=== PATIENT | female | born 1955 | race Caucasian/White ===

== ENCOUNTER 2016-08-12 11:45 | Observation (INO) | payer MEDICARE, OTHER ==
[~2016-08-12] VITALS: Ht 165.1 cm; Wt 90.0 kg
[~2016-08-12 11:45] MED LIST: ADVAI250I PO; ALPR.25 PO; CIPR500T4 PO; ENBR25IN3 SC; EPIP0.3I IM; GABA100C4 PO; METH2.5 PO; METO50CR PO; ONDA1TAB16 PO; TRAM50 PO
[2016-08-12 11:48] VITALS: BP 126/72; PULSE 80; RESP 16; TEMP 98.2; O2SAT 98
[2016-08-12 12:47] VITALS: BP 111/59; PULSE 64; RESP 20; O2SAT 99
[2016-08-12] MEDS ORDERED: EPIN1INJ17 IM (13:07)
[2016-08-12] MEDS ORDERED: ADVA250A INH (13:07)
[2016-08-12] MEDS ORDERED: ALPR.25 PO (13:07)
[2016-08-12] MEDS ORDERED: METH2.5T PO (13:10)
[2016-08-12] MEDS ORDERED: amitriptyline (13:10)
[2016-08-12] MEDS ORDERED: GABA100C4 PO (13:10)
[2016-08-12] MEDS ORDERED: SODIUM CHLORIDE 0.9% FLUSH 10 ML FLUSH IVF PRN (13:15)
--- NOTE | 2016-08-12 13:23 | PD ---
HPI Chief Complaint: Neuro Symptoms/ Deficits Time Seen by Provider: 13:18 Travel History International Travel<30 days: No Contact w/Intl Traveler<30days: No Traveled to known affect area: No History of Present Illness HPI 60-year-old female presents to the emergency department for evaluation of left eye blurriness, unstable gait, swinging to the left side that started approximately 3 days ago. Patient states she has fallen 3 times in the past 3 days. She states she has been getting intermittent headaches. Patient has a history of rheumatoid arthritis, atrial fibrillation, hypertension, DVT, COPD, PE, pneumothorax. She states that she is not currently on anticoagulants. Patient states that she had none of these symptoms before 3 days ago. Patient states she has a morphine pump due to chronic back pain from her rheumatoid arthritis. She states she has been having worsening pain. Patient denies any fevers. No chest pain or shortness of breath. No abdominal pain. No nausea, vomiting, diarrhea. She states her physical therapist came today he was concerned of her symptoms. She does report intermittent slurred speech as well. PFSH Past Medical History Arthritis: Yes (R.A.) Atrial Fibrillation: Yes Autoimmune Disease: Yes (R.A.) Blood Disorders: No Anxiety: Yes Depression: No Heart Rhythm Problems: Yes Cancer: No Cardiac Catheterization: No Cardiovascular Problems: Yes High Cholesterol: No Chest Pain: Yes Congestive Heart Failure: No COPD: Yes Cerebrovascular Accident: No Diabetes: No Diminished Hearing: Yes (L EAR DEAF) Endocrine: No Gastrointestinal Disorders: Yes GERD: No Glaucoma: No Genitourinary: Yes Headaches: Yes Hepatitis: No Hiatal Hernia: No Hypertension: Yes Immune Disorder: No Implanted Vascular Access Dvce: No Kidney Stones: No Medical other: Yes (ARTHRITIS- PHLEBITIS LEFT ARM-OSTEOMYLITIS) Musculoskeletal: Yes (OSTEOMYLITIS, BILATERAL CARPAL TUNNEL SURGERY) Neurologic: Yes Psychiatric: No Reproductive: Yes Respiratory: Yes (PE) Migraines: No Pneumonia: Yes Radiation Therapy: No Seizures: No Sleep Apnea: No Thyroid Disease: No Ulcer: No Tetanus Vaccination: < 5 Years Influenza Vaccination: No PNEUMOCCOCAL Vaccine (Year): 2 ?: Not Menopausal: Yes : 2 Para: 2 Past Surgical History Abdominal Surgery: Yes AICD: No Appendectomy: Yes Arteriovenous Shunt: No Section: Yes (X 2) Cholecystectomy: Yes Coronary Artery Bypass Graft: No Ear Surgery: Yes (MASTOID TUMOR REMOVED) Endocrine Surgery: No Eye Surgery: No Genitourinary Surgery: Yes (BLADDER SLING) Gynecologic Surgery: Yes Hysterectomy: Yes Insulin Pump: No Joint Replacement: No Oral Surgery: Yes (UPPER TEETH REMOVED FOR DENTURES) Pacemaker: No Thoracic Surgery: No Other Surgery: Yes (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 Epinephrine Inj (Epinephrine) 0.3 Mg/0.3 Ml Pfpen 0.3 Mg IM ONCE PRN Xanax (Alprazolam) 0.25 Mg Tab 0.25 Mg PO Q8H PRN Review of Systems Except as stated in HPI: all other systems reviewed are Neg Physical Exam Narrative GENERAL: Well-nourished, well-developed female patient, afebrile. SKIN: Focused skin assessment warm/dry. HEAD: Normocephalic. Atraumatic. ENT: Mucosa pink and moist. No erythema or exudates. No uvular edema. No uvular , palatal, or tonsillar deviation. Airway patent. Nasal turbinates appear normal without nasal blood, purulent drainage or septal hematoma. Bilateral tympanic membranes are clear without erythema or perforation. EYES: No scleral icterus. No injection or drainage. PERRLA. EOM intact. NECK: Supple, trachea midline. No JVD or lymphadenopathy. CARDIOVASCULAR: Regular rate and rhythm without murmurs, gallops, or rubs. Bilateral radial and pedal pulses are 2+ RESPIRATORY: Breath sounds equal bilaterally. No accessory muscle use. Lungs sounds are clear to auscultation. GASTROINTESTINAL: Abdomen soft, non-tender, nondistended. MUSCULOSKELETAL: No cyanosis, or edema. Bilateral upper and lower extremity strength 5/5. All extremities are neurovascularly intact. BACK: Nontender without obvious deformity. No CVA tenderness. NEUROLOGICAL: Awake and alert. Cranial nerves II through XII intact. Motor and sensory grossly within normal limits. Five out of 5 muscle strength in all muscle groups. Normal speech. Patient has difficulty doing [id number] bilaterally due to revision on the left. She is unable to do heel to alvarez due to chronic pain. Data Data Last Documented VS Vital Signs Date Time Temp Pulse Resp B/P Pulse Ox O2 Delivery O2 Flow Rate FiO2 08/12/16 13:45 20 95 Room Air 08/12/16 12:47 64 111/59 08/12/16 11:48 98.2 Orders Electrocardiogram (08/12/16 13:14) Prothrombin Time / Inr (Pt) (08/12/16 13:14) Act Partial Throm Time (Ptt) (08/12/16 13:14) Complete Blood Count With Diff (08/12/16 13:14) Comprehensive Metabolic Panel (08/12/16 13:14) Creatine Kinase (Cpk) (08/12/16 13:14) Troponin I (08/12/16 13:14) Urinalysis - C+S If Indicated (08/12/16 13:14) Ct Brain W/O Iv Contrast(Rout) (08/12/16 13:14) Chest, Single Ap (08/12/16 13:14) Ecg Monitoring (08/12/16 13:14) Iv Access Insert/Monitor (08/12/16 13:14) Oximetry (08/12/16 13:14) Sodium Chloride 0.9% Flush (Ns Flush) (08/12/16 13:15) Vascular Access Team Consult/P PRN (08/12/16 15:19) Mri Brain W/O Contrast (08/12/16 ) Mra Brain W/O Contrast (Cow) (08/12/16 ) Us Carotid Arteries Comp Bilat (08/12/16 ) Vascular Poc Ultrasound (08/12/16 ) Aspirin Chew (Aspirin Chew) (08/12/16 15:45) Labs Laboratory Tests Test 08/12/16 13:40 White Blood Count 5.1 TH/MM3 Red Blood Count 4.17 MIL/MM3 Hemoglobin 13.4 GM/DL Hematocrit 38.3 % Mean Corpuscular Volume 91.8 FL Mean Corpuscular Hemoglobin 32.2 PG Mean Corpuscular Hemoglobin 35.1 % Concent Red Cell Distribution Width 14.7 % Platelet Count 117 TH/MM3 Mean Platelet Volume 8.8 FL Neutrophils (%) (Auto) 41.8 % Lymphocytes (%) (Auto) 46.2 % Monocytes (%) (Auto) 9.3 % Eosinophils (%) (Auto) 2.2 % Basophils (%) (Auto) 0.5 % Neutrophils # (Auto) 2.1 TH/MM3 Lymphocytes # (Auto) 2.4 TH/MM3 Monocytes # (Auto) 0.5 TH/MM3 Eosinophils # (Auto) 0.1 TH/MM3 Basophils # (Auto) 0.0 TH/MM3 CBC Comment DIFF FINAL Differential Comment Prothrombin Time 11.5 SEC Prothromb Time International 1.0 RATIO Ratio Activated Partial 28.9 SEC Thromboplast Time Sodium Level 142 MEQ/L Potassium Level 4.1 MEQ/L Chloride Level 104 MEQ/L Carbon Dioxide Level 31.6 MEQ/L Anion Gap 6 MEQ/L Blood Urea Nitrogen 10 MG/DL Creatinine 0.64 MG/DL Estimat Glomerular Filtration 94 ML/MIN Rate Random Glucose 94 MG/DL Calcium Level 9.0 MG/DL Total Bilirubin 0.6 MG/DL Aspartate Amino Transf 57 U/L (AST/SGOT) Alanine Aminotransferase 29 U/L (ALT/SGPT) Alkaline Phosphatase 95 U/L Total Creatine Kinase 88 U/L Troponin I 0.03 NG/ML Total Protein 8.0 GM/DL Albumin 3.6 GM/DL [facility] Medical Decision Making Medical Screen Exam Complete: Yes Emergency Medical Condition: Yes Medical Record Reviewed: Yes Interpretation(s) CT brain - CONCLUSION: No acute intracranial disease. Left mastoidectomy. Chest x-ray - CONCLUSION: No acute cardiopulmonary abnormality is identified. Differential Diagnosis CVA versus TIA versus intracranial hemorrhage versus electrolyte abnormality versus cardiac arrhythmia Narrative Course 60-year-old female presents to the emergency department for evaluation of left eye blurriness, unstable gait, constant falls over the past 3 days. EKG, CBC, CMP, CK, troponin, PTT, PTT/INR, UA, CT of the brain, chest x-ray are ordered and pending. EKG shows sinus rhythm, heart rate 61, inverted T waves in V3, V4, V5. EKG is unchanged and previous EKG. CBC shows low platelets of 117, no other abnormality. CMP shows no acute abnormality. CK is 88. Troponin is 0.03. Coags are unremarkable. CT of the brain shows no acute intracranial disease. Chest x-ray shows no acute cardiopulmonary abnormality. I spoke to Dr. Harley who would like the patient to be admitted and consult placed. MRI of the brain, MRA COW, US carotid arteries are ordered and pending. [facility] is paged for admission. Dr. Valdez accepted admission. Diagnosis Primary Impression: CVA (cerebral vascular accident) Qualified Code: I63.9 - Cerebrovascular accident (CVA), unspecified mechanism Admitting Information Admitting Physician Requests: Admit Maria Fernanda Aguilera August 12, 2016 13:23
[2016-08-12 13:45] VITALS: RESP 20; O2SAT 95
[2016-08-12 13:53] LABS: AUTOMATED NEUTROPHIL # 2.1 TH/MM3 (1.8-7.7); BASOPHIL % 0.5 % (0.0-2.0); EOSINOPHIL # 0.1 TH/MM3 (0-0.4); EOSINOPHIL % 2.2 % (0.0-4.0); HEMATOCRIT 38.3 % (35.0-46.0); HEMO FLAGS DIFF FINAL; LYMPH % 46.2 % (9.0-44.0); LYMPHOCYTE # 2.4 TH/MM3 (1.0-4.8); MEAN CELL VOLUME 91.8 FL (80.0-100.0); MEAN CORPUSCULAR HEMOGLOBIN 32.2 PG (27.0-34.0); MEAN CORPUSCULAR HGB CONC 35.1 % (32.0-36.0); MONO % 9.3 % (0.0-8.0); NEUT % 41.8 % (16.0-70.0); PLATELET COUNT 117 TH/MM3 (150-450); RED BLOOD COUNT 4.17 MIL/MM3 (4.00-5.30); RED CELL DISTRIBUTION WIDTH 14.7 % (11.6-17.2); WHITE BLOOD COUNT 5.1 TH/MM3 (4.0-11.0)
[2016-08-12 14:03] LABS: APTT (PATIENT) 28.9 SEC (24.3-30.1); PROTHROMBIN TIME - PATIENT 11.5 SEC (9.8-11.6)
[2016-08-12 14:08] LABS: ANION GAP 6 MEQ/L (5-15); AST (GOT) 57 U/L (15-37); BICARBONATE 31.6 MEQ/L (21.0-32.0); BLOOD UREA NITROGEN 10 MG/DL (7-18); CHLORIDE 104 MEQ/L (98-107); GLOMERULAR FILTRATION RATE 94 ML/MIN (>89); POTASSIUM 4.1 MEQ/L (3.5-5.1); SODIUM (NA) 142 MEQ/L (136-145)
--- NOTE | 2016-08-12 14:11 | RADRPT ---
EXAM DATE/TIME: 08/12/2016 13:36 [facility] COMPARISON: CT PULMONARY ANGIOGRAM, October 14, 2014, 22:47. CHEST SINGLE AP, October 14, 2014, 20:26. INDICATIONS : Confusion and weakness. MEDICAL HISTORY : Unobtainable. SURGICAL HISTORY : Unobtainable. ENCOUNTER: Initial ACUITY: 1 day PAIN SCORE: 0/10 LOCATION: Bilateral chest FINDINGS: Portable AP view of the chest demonstrates a normal-sized cardiac silhouette. There is atelectasis at the left lung base. The subtle ovoid opacity in the left upper lung zone is stable. Chest CT perform ed in the interval demonstrated no pulmonary nodule. No effusion, consolidation, or pneumothorax is s een. Bones and soft tissues demonstrate no acute finding. CONCLUSION: No acute cardiopulmonary abnormality is identified. Vince De La Vega MD on August 12, 2016 at 14:06 Board Certified Radiologist. This report was verified electronically.
--- NOTE | 2016-08-12 14:11 | RADRPT ---
EXAM DATE/TIME: 08/12/2016 14:01 [facility] COMPARISON: No previous studies available for comparison. INDICATIONS : Patient has left eye bluriness along with slurred speech. RADIATION DOSE: 56.35 CTDIvol (mGy) MEDICAL HISTORY : Cardiovascular disease. Hypertension. SURGICAL HISTORY : Appendectomy. Cholecystectomy.Hysterectomy. ENCOUNTER: Initial ACUITY: 1 day PAIN SCALE: 0/10 LOCATION: cranial TECHNIQUE: Multiple contiguous axial images were obtained of the head. Using automated exposure control and adj ustment of the mA and/or kV according to patient size, radiation dose was kept as low as reasonably a chievable to obtain optimal diagnostic quality images. FINDINGS: CEREBRUM: The ventricles are normal for age. No evidence of midline shift, mass lesion, hemorrhage or acute in farction. No extra-axial fluid collections are seen. POSTERIOR FOSSA: The cerebellum and brainstem are intact. The 4th ventricle is midline. The cerebellopontine angle i s unremarkable. EXTRACRANIAL: The visualized portion of the orbits is intact. SKULL: The calvaria is intact. No evidence of skull fracture. Left mastoidectomy. CONCLUSION: No acute intracranial disease. Left mastoidectomy. Jovan Etienne MD on August 12, 2016 at 14:08 Board Certified Radiologist. This report was verified electronically.
[2016-08-12 14:13] LABS: ALKALINE PHOSPHATASE 95 U/L (45-117); ALT (GPT) 29 U/L (10-53); TOTAL BILIRUBIN ADULT 0.6 MG/DL (0.2-1.0)
[2016-08-12 14:21] LABS: CREATINE KINASE 88 U/L (26-192)
[2016-08-12] MEDS ORDERED: ASPIRIN 81 MG CHEW TAB CHEW ONE (15:45)
[2016-08-12] MEDS ORDERED: SODIUM CHLOR 0.9% 1000 ML INJ 1,000 ML IV SCH (16:29)
[2016-08-12] MEDS ORDERED: EPINEPHrine HCL 0.3 MG SYR IM PRN (16:30)
[2016-08-12] MEDS ORDERED: ACETAMINOPHEN 325 MG TAB PO PRN (16:30)
[2016-08-12] MEDS ORDERED: ONDANSETRON HCL 4 MG/2 ML VIAL IVP PRN (16:30)
[2016-08-12] MEDS ORDERED: NALOXONE HCL 0.4 MG/ML AMP IV PRN (16:30)
[2016-08-12] MEDS ORDERED: ALPRAZolam 0.25 MG TAB PO PRN (16:30)
[2016-08-12] MEDS ORDERED: SODIUM CHLORIDE 0.9% FLUSH 10 ML FLUSH IV FLUSH PRN (16:30)
--- NOTE | 2016-08-12 16:41 | RADRPT ---
EXAM DATE/TIME: 08/12/2016 15:41 [facility] COMPARISON: No previous studies available for comparison. INDICATIONS : CVA MEDICAL HISTORY : Hypertension. Chronic obstructive pulmonary disease. Arthritis. A-fib. Anxiety. Phlebitis of left arm . SURGICAL HISTORY : Appendectomy. section. Hysterectomy. Mastoid tumor removal. Cardiac ablation. Cholecystectom y. Left and right knee. Bilateral carpal tunnel surgery. ENCOUNTER: Initial ACUITY: 4-6 days PAIN SCORE: 4/10 LOCATION: Bilateral neck PEAK SYSTOLIC VELOCITIES (cm/sec): ICA/CCA RATIO: Right: 1.4 Left: 1.1 ICA: Right: 102.0 Left: 91.1 CCA: Right: 72.5 Left: 81.2 ECA: Right: 138.7 Left: 73.3 VERTEBRAL: Right: 66.1 antegrade Left: 50.4 antegrade Elevated flow velocities and ICA/CCA ratios have been found to correlate with increased degrees of vessel stenosis, calculated as percentage of diameter relative to a normal segment of distal ICA/CCA FINDINGS: RIGHT CAROTID: No significant stenosis is visualized. The waveforms are within normal limits. LEFT CAROTID: No significant stenosis is visualized. The waveforms are within normal limits. VERTEBRAL ARTERIES: Antegrade flow is seen in both vertebral arteries. MISCELLANEOUS: None. CONCLUSION: No evidence of flow-limiting carotid stenosis. Vince Velazquez MD on August 12, 2016 at 16:37 Board Certified Radiologist. This report was verified electronically.
[2016-08-12] MEDS: HEPARIN SODIUM - SQ 10,000 UNITS/ML VIAL SQ SCH (17:23)
[2016-08-12] MEDS: GABAPENTIN 100 MG CAP PO SCH (17:23)
--- NOTE | 2016-08-12 18:22 | PD.CONS ---
History of Present Illness Service Neurology Consult Requested By er Reason for Consult stroke Primary Care Physician Misael Mederos, DO History of Present Illness 60-year-old female presents to the emergency department for evaluation of left eye blurriness, unstable gait, swinging to the left side that started approximately 3 days ago. she believes it occurred acutely. left arm numb, vertical diplopia, gait imbalance. ct brain naicp. glucose 94. hx of chronic pain, on pain pump. has underlying RA. not taking any blood thinners, no aspirin. smokes 1 ppd x decades. ambulates with a cane. chronic leg weakness. no hx of stroke. hx of afib, had ablation 03/2014 at [facility] [place]. [facility] Past Medical History Arthritis: Yes (R.A.) Atrial Fibrillation: Yes Autoimmune Disease: Yes (R.A.) Blood Disorders: No Anxiety: Yes Depression: No Heart Rhythm Problems: Yes Cancer: No Cardiac Catheterization: No Cardiovascular Problems: Yes High Cholesterol: No Chest Pain: Yes Congestive Heart Failure: No COPD: Yes Cerebrovascular Accident: No Diabetes: No Diminished Hearing: Yes (L EAR DEAF) Endocrine: No Gastrointestinal Disorders: Yes GERD: No Glaucoma: No Genitourinary: Yes Headaches: Yes Hepatitis: No Hiatal Hernia: No Hypertension: Yes Immune Disorder: No Implanted Vascular Access Dvce: No Kidney Stones: No Medical other: Yes (ARTHRITIS- PHLEBITIS LEFT ARM-OSTEOMYLITIS) Musculoskeletal: Yes (OSTEOMYLITIS, BILATERAL CARPAL TUNNEL SURGERY) Neurologic: Yes Psychiatric: No Reproductive: Yes Respiratory: Yes (PE) Migraines: No Pneumonia: Yes Radiation Therapy: No Seizures: No Sleep Apnea: No Thyroid Disease: No Ulcer: No Tetanus Vaccination: < 5 Years Influenza Vaccination: No PNEUMOCCOCAL Vaccine (Year): 2 ?: Not Menopausal: Yes : 2 Para: 2 Past Surgical History Abdominal Surgery: Yes AICD: No Appendectomy: Yes Arteriovenous Shunt: No Section: Yes (X 2) Cholecystectomy: Yes Coronary Artery Bypass Graft: No Ear Surgery: Yes (MASTOID TUMOR REMOVED) Endocrine Surgery: No Eye Surgery: No Genitourinary Surgery: Yes (BLADDER SLING) Gynecologic Surgery: Yes Hysterectomy: Yes Social History Alcohol Use: No Tobacco Use: Yes (1-2 CIGS A DAY) Substance Use: No Allergies-Medications (Allergen,Severity, Reaction): Coded Allergies: Cortisone (Unverified Allergy, Intermediate, Hypertension, 12/11/14) CAUSES RASH AND HIGH BLOOD PRESSURE Reported Meds & Prescriptions Reported Meds & Active Scripts Active Reported [amitriptyline] Methotrexate 2.5 Mg Tab 10 Mg PO Q7D Gabapentin 100 Mg Cap 200 Mg PO TID Advair Diskus Inh (Fluticasone-Salmeterol Inh) 250-50 Mcg/Blist Aer 1 Puff INH BID Rinse mouth after use. Epinephrine Inj (Epinephrine) 0.3 Mg/0.3 Ml Pfpen 0.3 Mg IM ONCE PRN Xanax (Alprazolam) 0.25 Mg Tab 0.25 Mg PO Q8H PRN Review of Systems Except as stated in HPI: all other systems reviewed are Neg Review of Systems All other ROS: ROS reviewed as documented in chart Past Family Social History Allergies: Coded Allergies: Cortisone (Unverified Allergy, Intermediate, Hypertension, 12/11/14) CAUSES RASH AND HIGH BLOOD PRESSURE Active Ordered Medications Current Medications Medications (Trade) Dose Ordered Sig/Sincere Route Start Time Stop Time Status Last Admin (NS Flush) 2 ml UNSCH PRN IVF 08/12/16 13:15 (Xanax) 0.25 mg Q8H PRN PO 08/12/16 16:30 (Epipen Inj) 0.3 mg ONCE PRN IM 08/12/16 16:30 09/11/16 16:29 Gabapentin 200 mg 200 mg TID PO 08/12/16 18:00 08/12/16 17:23 (NS 1000 ml Inj) 1,000 ml @ 100 mls/hr Q10H IV 08/12/16 16:29 (NS Flush) 2 ml UNSCH PRN IV FLUSH 08/12/16 16:30 (NS Flush) 2 ml BID IV FLUSH 08/12/16 21:00 (Tylenol) 650 mg Q4H PRN PO 08/12/16 16:30 (Zofran Inj) 4 mg Q6H PRN IVP 08/12/16 16:30 (Heparin Inj) 5,000 units Q12H SQ 08/12/16 18:00 08/12/16 17:23 (Narcan Inj) 0.4 mg UNSCH PRN IV 08/12/16 16:30 (Symbicort 160-4.5 Inh) 2 puff BID INH 08/12/16 21:00 (Aspirin Chew) 162 mg DAILY CHEW 08/13/16 09:00 Exam I&O / VS Vital Signs Date Time Temp Pulse Resp B/P Pulse Ox O2 Delivery O2 Flow Rate FiO2 08/12/16 13:45 20 95 Room Air 08/12/16 12:47 64 20 111/59 99 Room Air 08/12/16 11:48 98.2 80 16 126/72 98 General: Alert and Oriented, No acute distress Respiratory: Non-labored respirations Musculoskeletal: ROM Neurologic: Alert, Oriented, CN II-XII intact, Gag reflex normal, Normal DTR's Psychiatric: Cooperative, Appropriate mood & affect, Normal judgement Exam Comments ox 3, no aphasia, mild rt gaze nystagmus, slight hypertropia, eomi otherwise, vff, ou 3-2mm, face sym, neck supple, mild reduced pin in left ue,no ue drift, no ataxia in ue, francis le weakness able to lift to gravity but proportional to pt effort that appears to be 2/2 pain-chronic, msr 1+, no clonus, planterflexor Review/Management Diagnosis/Plan: (1) Acute lacunar stroke Plan: possible lacunar midbrain infarct recs aspirin tobacco cessation p.t. f/u cta brain/carotids no mri with pain pump check lipids tele follow exam (2) S/P ablation of atrial fibrillation Plan: would suggest monitoring to r/o recurrent afib; may need to obtain cardio eval with Dr. Rose if recurrent would suggest OAC (3) Tobacco consumption Plan: cessation encouraged (4) Afib (5) Chronic pain Problem Qualifiers (1) Afib: Qualified Code: I48.91 - Atrial fibrillation, unspecified type (2) Chronic pain: Qualified Code: G89.4 - Chronic pain syndrome Mack Harley MD August 12, 2016 18:22
[2016-08-12 19:52] VITALS: BP 111/68; PULSE 63; RESP 18; TEMP 97.9; O2SAT 93
--- NOTE | 2016-08-12 19:57 | EKG ---
Date Performed: 08/12/2016 Time Performed: 13:46:44 PTAGE: 60 years EKG: Sinus rhythm NONSPECIFIC T-WAVE ABNORMALITY BORDERLINE ECG PREVIOUS TRACING : 10/15/2014 02.25 Compared to prior tracing no significant change DOCTOR: Lashay Snider Interpretating Date/Time 08/12/2016 19:56:10
--- NOTE | 2016-08-12 20:10 | RADRPT ---
EXAM DATE/TIME: 08/12/2016 18:41 [facility] COMPARISON: CT BRAIN W/O CONTRAST, August 12, 2016, 14:01. INDICATIONS : Inability to ambulate. High blurriness and slurred speech. MEDICAL HISTORY : Hypertension. Rheumatoid arthritis. A-fib. SURGICAL HISTORY : Cardiac ablation. Medtronic pain pump. Bi-lateral ankles. Knee. Wrist. ENCOUNTER: Subsequent ACUITY: 3 day PAIN SCORE: 5/10 LOCATION: cranial TECHNIQUE: Multiplanar, multisequence MRI of the brain was performed without contrast. FINDINGS: CEREBRUM: The ventricles are normal for age. No evidence of midline shift, mass lesion, hemorrhage or acute in farction. No extraaxial fluid collections are seen. The pituitary gland and suprasellar cistern are normal in configuration. WHITE MATTER: No significant signal abnormalities are seen in the white matter. POSTERIOR FOSSA: The cerebellum and brainstem are intact. The 4th ventricle is midline. The cerebellopontine angle is unremarkable. The cerebellar tonsils are normal in position. DIFFUSION IMAGING: No focal areas of restricted diffusion are seen. No evidence of acute infarction. EXTRACRANIAL: The visualized portions of the orbits and paranasal sinuses are unremarkable. CONCLUSION: 1. No acute hemorrhage, mass or infarction. 2. The orbits and globes appear intact. Elgin Corcoran MD on August 12, 2016 at 20:07 Board Certified Radiologist. This report was verified electronically.
--- NOTE | 2016-08-12 20:16 | RADRPT ---
EXAM DATE/TIME: 08/12/2016 18:41 [facility] COMPARISON: No previous studies available for comparison. INDICATIONS : Inability to ambulate. Left eye blurriness and slurred speech. MEDICAL HISTORY : Hypertension. Rheumatoid arthritis. A-fib. SURGICAL HISTORY : Cardiac ablation. Medtronic pain pump. Bi-lateral ankles. Knee. Wrist. ENCOUNTER: Subsequent ACUITY: 3 day PAIN SCORE: 5/10 LOCATION: Lower back. TECHNIQUE: Screening MRI of the entire spinal axis was performed in the sagittal and axial planes. FINDINGS: There is motion artifact greatest on the axial images. On the sagittal images there is an anterior ex tradural defect noted at the C5-6 level with mass effect on the anterior thecal sac. This comes in co ntact with anterior cord. There is linear high signal in the cord on the sagittal images at this leve l as well. No other dural defects are identified on the sagittal images. There are mild degenerative disc changes with desiccation. Axial images demonstrate motion artifact greatest in the cervical region. There is a disc protrusion versus bulge at the C5-6 level with mass effect on the anterior thecal sac and flattening of the cord . The CSF space around the cord is obliterated with a residual AP diameter the canal measuring 6-7 mm . No other anterior extradural defects are noted on the axial images. The thoracic and lumbar spine a ppear unremarkable. CONCLUSION: 1. Disc bulge versus protrusion at the C5-6 level with mass effect on the anterior thecal sac and fla ttening of the cord. No spinal stenosis. There is questionable increased signal in the cord at this l evel which may be artifactual. 2. The study is degraded by motion artifact especially on the axial images limiting the sensitivity. Elgin Corcoran MD on August 12, 2016 at 20:09 Board Certified Radiologist. This report was verified electronically.
[2016-08-12] MEDS: SODIUM CHLOR 0.9% 1000 ML INJ 1,000 ML IV SCH (20:58)
[2016-08-12] MEDS: SODIUM CHLORIDE 0.9% FLUSH 10 ML FLUSH IV FLUSH SCH (20:59)
[2016-08-12] MEDS: BUDESONIDE-FORMOTEROL 160/4.5 MCG INHALER INH SCH (20:59)
[2016-08-12] MEDS ORDERED: NON-FORMULARY DRUG (Fluticasone-Salmeterol Inh (Advair Diskus Inh) 1 PUFF) INH SCH (21:00)
--- NOTE | 2016-08-12 21:12 | RADRPT ---
EXAM DATE/TIME: 08/12/2016 18:41 [facility] COMPARISON: No previous studies available for comparison. INDICATIONS : Inability to ambulate. MEDICAL HISTORY : Hypertension. Rheumatoid arthritis. A-fib. SURGICAL HISTORY : Cardiac ablation. Medtronic pain pump. Bi-lateral ankles. Knee. Wrist. ENCOUNTER: Subsequent ACUITY: 3 day PAIN SCORE: 5/10 LOCATION: cranial Please note a normal MRA of the brain does not entirely exclude the possibility of a small aneurysm, nor the possibility of distal intracranial vessel disease. TECHNIQUE: 3D time of flight MRA was performed. Source images, multiplanar STS MIP, and 3D volume MIP reconstru ctions were reviewed. FINDINGS: There is excellent visualization of the major intracranial arteries out to the second-order branch ve ssels. There is no evidence for aneurysm, vessel truncation or stenosis, and no evidence for vascula r malformation. Diminutive right vertebral artery. CONCLUSION: Diminutive right vertebral artery. The study is otherwise unremarkable. Elgin Corcoran MD on August 12, 2016 at 21:10 Board Certified Radiologist. This report was verified electronically.
[2016-08-13] VITALS (7 sets, daily range): BP systolic 106–144; BP diastolic 62–81; PULSE 55–69; RESP 17–20; TEMP 97.5–98; O2SAT 92–96
[2016-08-13 05:13] LABS: AUTOMATED NEUTROPHIL # 1.8 TH/MM3 (1.8-7.7); EOSINOPHIL # 0.1 TH/MM3 (0-0.4); EOSINOPHIL % 2.6 % (0.0-4.0); HEMATOCRIT 36.4 % (35.0-46.0); LYMPH % 46.5 % (9.0-44.0); LYMPHOCYTE # 2.2 TH/MM3 (1.0-4.8); MEAN CELL VOLUME 90.9 FL (80.0-100.0); MEAN CORPUSCULAR HEMOGLOBIN 31.3 PG (27.0-34.0); MEAN CORPUSCULAR HGB CONC 34.5 % (32.0-36.0); MONO % 12.7 % (0.0-8.0); NEUT % 37.2 % (16.0-70.0); PLATELET COUNT 121 TH/MM3 (150-450); RED CELL DISTRIBUTION WIDTH 14.5 % (11.6-17.2); WHITE BLOOD COUNT 4.8 TH/MM3 (4.0-11.0)
[2016-08-13 05:34] LABS: BICARBONATE 28.5 MEQ/L (21.0-32.0); POTASSIUM 4.3 MEQ/L (3.5-5.1)
[2016-08-13 05:45] LABS: HEMO FLAGS AUTO DIFF; SCAN/DIFF AUTO DIFF CONFIRMED
[2016-08-13] MEDS: HEPARIN SODIUM - SQ 10,000 UNITS/ML VIAL SQ SCH ×2 (06:20→17:27)
--- NOTE | 2016-08-13 08:27 | HHI.PR ---
Review/Management Diagnosis/Plan: (1) Cervical spondylosis without myelopathy Plan: mri brain negative for stroke mra brain- small rt vert carotid nml mri cspine- focal stenosis. ? cord lesion- probable artifact recs f/u mri cspine f/u lipids p.t. d/c planning today (2) Acute lacunar stroke Plan: possible lacunar midbrain infarct- mri negative; tiny infarct possible recs aspirin tobacco cessation p.t. (3) S/P ablation of atrial fibrillation Plan: would suggest monitoring to r/o recurrent afib; may need to obtain cardio eval with Dr. Rose if recurrent would suggest OAC (4) Tobacco consumption Plan: cessation encouraged (5) Afib (6) Chronic pain Subjective Subjective Comments No acute events reported No headache No chest pain No dyspnea Active Medications Current Medications Medications (Trade) Dose Ordered Sig/Sincere Route Start Time Stop Time Status Last Admin (Xanax) 0.25 mg Q8H PRN PO 08/12/16 16:30 08/12/16 21:04 (Epipen Inj) 0.3 mg ONCE PRN IM 08/12/16 16:30 09/11/16 16:29 (Neurontin) 200 mg TID PO 08/12/16 18:00 08/12/16 17:23 (NS Flush) 2 ml UNSCH PRN IV FLUSH 08/12/16 16:30 (NS Flush) 2 ml BID IV FLUSH 08/12/16 21:00 08/12/16 20:59 (Tylenol) 650 mg Q4H PRN PO 08/12/16 16:30 (Zofran Inj) 4 mg Q6H PRN IVP 08/12/16 16:30 (Heparin Inj) 5,000 units Q12H SQ 08/12/16 18:00 08/13/16 06:20 (Narcan Inj) 0.4 mg UNSCH PRN IV 08/12/16 16:30 (Symbicort 160-4.5 Inh) 2 puff BID INH 08/12/16 21:00 08/12/16 20:59 Aspirin 162 mg 162 mg DAILY CHEW 08/13/16 09:00 (NS 1000 ml Inj) 1,000 ml @ 75 mls/hr [id number] IV 08/12/16 18:30 08/12/16 20:58 Allergies Allergies Coded Allergies Cortisone (Unverified Allergy, Intermediate, Hypertension, 12/11/14) Review of Systems All other ROS: ROS reviewed as documented in chart Exam I&O / VS 08/12/16 08/12/16 08/13/16 15:00 23:00 07:00 Intake Total 1420 ml Balance 1420 ml Intake Oral 720 ml IV Total 700 ml Vital Signs Date Time Temp Pulse Resp B/P Pulse Ox O2 Delivery O2 Flow Rate FiO2 08/13/16 08:02 97.9 56 17 129/63 92 08/13/16 05:10 97.8 60 18 106/62 93 08/13/16 05:00 58 08/12/16 19:52 97.9 63 18 111/68 93 08/12/16 13:45 20 95 Room Air 08/12/16 12:47 64 20 111/59 99 Room Air 08/12/16 11:48 98.2 80 16 126/72 98 General: Alert and Oriented, No acute distress Respiratory: Non-labored respirations Musculoskeletal: ROM Neurologic: Alert, Oriented, CN II-XII intact, Gag reflex normal, Normal DTR's Psychiatric: Cooperative, Appropriate mood & affect, Normal judgement Exam Comments ox 3, no aphasia, mild rt gaze nystagmus, slight hypertropia, eomi otherwise, vff, ou 3-2mm, face sym, neck supple, mild reduced pin in left ue,no ue drift, no ataxia in ue, francis le weakness able to lift to gravity but proportional to pt effort that appears to be 2/2 pain-chronic, msr 1+, no clonus, planterflexor Objective Micro and Labs Laboratory Tests Test 08/12/16 08/13/16 13:40 04:49 White Blood Count 5.1 4.8 Red Blood Count 4.17 4.00 Hemoglobin 13.4 12.5 Hematocrit 38.3 36.4 Mean Corpuscular Volume 91.8 90.9 Mean Corpuscular Hemoglobin 32.2 31.3 Mean Corpuscular Hemoglobin 35.1 34.5 Concent Red Cell Distribution Width 14.7 14.5 Platelet Count 117 121 Mean Platelet Volume 8.8 9.5 Neutrophils (%) (Auto) 41.8 37.2 Lymphocytes (%) (Auto) 46.2 46.5 Monocytes (%) (Auto) 9.3 12.7 Eosinophils (%) (Auto) 2.2 2.6 Basophils (%) (Auto) 0.5 1.0 Neutrophils # (Auto) 2.1 1.8 Lymphocytes # (Auto) 2.4 2.2 Monocytes # (Auto) 0.5 0.6 Eosinophils # (Auto) 0.1 0.1 Basophils # (Auto) 0.0 0.0 CBC Comment DIFF FINAL AUTO DIFF Differential Comment AUTO DIFF CONFIRMED Prothrombin Time 11.5 Prothromb Time International 1.0 Ratio Activated Partial 28.9 Thromboplast Time Sodium Level 142 142 Potassium Level 4.1 4.3 Chloride Level 104 108 Carbon Dioxide Level 31.6 28.5 Anion Gap 6 6 Blood Urea Nitrogen 10 9 Creatinine 0.64 0.57 Estimat Glomerular Filtration 94 108 Rate Random Glucose 94 110 Calcium Level 9.0 8.6 Total Bilirubin 0.6 Aspartate Amino Transf 57 (AST/SGOT) Alanine Aminotransferase 29 (ALT/SGPT) Alkaline Phosphatase 95 Total Creatine Kinase 88 Troponin I 0.03 Total Protein 8.0 Albumin 3.6 Problem Qualifiers (1) Afib: Qualified Code: I48.91 - Atrial fibrillation, unspecified type (2) Chronic pain: Qualified Code: G89.4 - Chronic pain syndrome Mack Harley MD August 13, 2016 08:27
[2016-08-13] MEDS: SODIUM CHLOR 0.9% 1000 ML INJ 1,000 ML IV SCH (08:41)
[2016-08-13] MEDS: GABAPENTIN 100 MG CAP PO SCH ×3 (08:42→17:26)
[2016-08-13] MEDS: SODIUM CHLORIDE 0.9% FLUSH 10 ML FLUSH IV FLUSH SCH (08:44)
[2016-08-13] MEDS: BUDESONIDE-FORMOTEROL 160/4.5 MCG INHALER INH SCH (08:44)
[2016-08-13] MEDS ORDERED: ASPIRIN 81 MG CHEW TAB CHEW SCH (09:00)
[2016-08-13 09:04] LABS: HDL CHOLESTEROL 30.1 MG/DL (40.0-60.0)
--- NOTE | 2016-08-13 09:19 | MH ---
cc: SHANIQUE DECKER DATE OF ADMISSION: 08/12/2016 DATE OF 1955 CHIEF COMPLAINT Unsteady gait and garbled speech. TRAVEL IN THE LAST 30 DAYS None HISTORY OF PRESENT ILLNESS This is a 60-year-old female who complained of symptoms for three days of left eye blurring following at least three times unsteady gait and some slurred speech. She also states that she has been getting some intermittent headaches, but denies any fever, no nausea, no vomiting. No diarrhea. No constipation. The patient does have rheumatoid arthritis and other multi medical comorbidities and wears a morphine pump for chronic back pain. She states that her pain has been worsening. She comes to the emergency room for evaluation. PAST MEDICAL HISTORY 1. Arthritis, positive for rheumatoid arthritis 2. Atrial fib 3. Autoimmune disease which is the arthritis. 4. Anxiety 5. DVT 6. Hypertension 7. COPD 8. Pneumothorax 9. Cardiovascular disease 10. Left ear deafness 11. Hypertension 12. Phlebitis in the left arm 13. Osteomyelitis 14. Bilateral carpal tunnel syndrome PAST SURGICAL HISTORY 1. Mastoid tumor removed 2. Bladder sling 3. C-sections x2 4. Cholecystectomy 5. Appendectomy 6. Abdominal surgery 7. Bilateral carpal tunnel surgery 8. Upper teeth removed for dentures. ALLERGIES CORTISONE REPORTED MEDICATIONS 1. Amitriptyline 2. Methotrexate 3. Gabapentin 4. Advair 5. Epi injection as needed 6. Xanax SOCIAL HISTORY The patient is positive for about a pack a day of tobacco use. Denies any alcohol, no illicit drugs. REVIEW OF SYSTEMS Positive as mentioned in HPI which are her left eye blurring, unsteady gait, falling, some intermittent headaches and slurred speech. Other systems negative or unremarkable if not mentioned in the HPI for now. VITAL SIGNS: Temperature is 97.8, pulse 60, respirations 18, blood pressure 106/62, the highest blood pressure on admission 126/72, pulse ox between 93 and 98, room air. PHYSICAL EXAMINATION GENERAL: Mildly obese female who looks to be older than her stated age resting in the bed. She does awake to verbal stimuli, but still has some slurring of her speech. SKIN: Warm and dry, pink mucous membranes. HEENT: Atraumatic, normocephalic. No exudate. No scleral icterus. PERRL at 2. NECK: Supple. CARDIOVASCULAR: S1-S2, regular rate and rhythm. No murmurs, rubs or gallops. She has trace of edema in her lower extremities. Pulses are intact. RESPIRATORY: She does have some bilateral expiratory wheezing in the upper fisher, some diminished breath sounds throughout, but no rales or rhonchi. GI: Abdomen is soft, nontender, nondistended. Active bowel sounds. MUSCULOSKELETAL: She moves her extremities on command. Her left is slightly less than her right. Although her hand mailroom manager are both of 3/5. NEUROLOGIC: The patient is alert and awakens easily. Her tongue is midline. Her motor and sensory has some generalized weakness, but left is slightly less than the right. The patient does have some slurring and garbled speech, but then the next minute will speak normal. PSYCHIATRIC: Her mood and affect are appropriate and fairly flat. DIAGNOSTIC DATA WBC count 4.8, RBC 4, hemoglobin 12.5, hematocrit 36.4, platelet count 121, lymphocyte percentage 46.5, monocyte percentage 12.7, PT INR is 1. Chemistry sodium 142, potassium 4.3, chloride 108, carbon dioxide 28.5, amnion gap 6, BUN 9, creatinine 0.57, GFR 108, random glucose 194-110, calcium 8.6, troponin is 0.03, albumin 3.6, AST 57. IMAGING STUDIES Chest x-ray, no acute cardiopulmonary disease. CT Head No acute intracranial disease, left mastoidectomy. Brain MRI no acute hemorrhage or mass effect, orbits and globes appear intact. Carotid studies, no carotid stenosis. Entire spine MRI bulging disk, protrusion at C5-C6 with mass effect and on the anterior thecal sac flattening of the cord, but no spinal stenosis. Questionable increased signal at this level, but may be artifact. This study is degraded by motion limiting the sensitivity. Head MRA. Diminutive left vertebral artery otherwise study is unremarkable. ASSESSMENT/PLAN 1. Possible CVA, rule out 2. History of left mastoidectomy. 3. Degenerative cervical disk disease 4. History of rheumatoid arthritis 5. Chronic back pain requiring a morphine pump. 6. History of atrial fibrillation. 7. Anxiety disorder 8. History of left ear deafness. 9. COPD 10. Tobacco dependence PLAN 1. Admit 2. Have her evaluated by neurology. 3. Continue neuro checks. 4. Fall precautions 5. SCD's bilateral for her DVT prophylaxis. 6. 2-D echo has been ordered. 7. Vital signs will be q4 and as warranted. 8. Activity can be out of bed with assistance. 9. Heart healthy diet. 10. The patient will have her labs monitored which includes IV access and ECG monitoring. Now that her initial testing is done, I will discuss with Dr. Decker a further plan of care. Dictated by LISSA Orellana MD CHANA Swenson/DESTINEY /7:55 AM /9:19 AM
[2016-08-13] MEDS ORDERED: GADODIAMIDE PF 287 MG/ML 20 ML VIAL (for RAD MRI) IV ONE (10:37)
--- NOTE | 2016-08-13 10:45 | EC ---
Study Study Date:08/12/2016 STUDY CONCLUSIONS SUMMARY - Left ventricle: The cavity size was normal. Wall thickness was normal. Systolic function was normal. The estimated ejection fraction was 60%. Wall motion was normal; there were no regional wall motion abnormalities. - Tricuspid valve: Mild regurgitation. If LV function is below 40, please consider prescribing an ACEI or ARB or document rationale for non-use. PROCEDURE DATA STUDY STATUS: Elective. Procedure: Transthoracic echocardiography. Image quality was good. Scanning was performed from the parasternal, apical, and subcostal acoustic windows. Study completion: The patient tolerated the procedure well. Transthoracic echocardiography. M-mode, complete 2D, complete spectral Doppler, and color Doppler. Height: Height: 65in. Weight: Weight: 197.6lb. Body mass index: BMI: 32.9kg/m^2. Body surface area: BSA: 1.97m^2. Patient status: Inpatient. CARDIAC ANATOMY LEFT VENTRICLE: The cavity size was normal. Wall thickness was normal. Systolic function was normal. The estimated ejection fraction was 60%. Wall motion was normal; there were no regional wall motion abnormalities. AORTIC VALVE: Trileaflet; normal thickness leaflets. Doppler: Transvalvular velocity was within the normal range. There was no stenosis. No regurgitation. Valve area: 1.87cm^2 (Vmax). Indexed valve area: 0.95cm^2/m^2 (Vmax). AORTA: Aortic root: The aortic root was normal in size. MITRAL VALVE: Structurally normal valve. Doppler: Transvalvular velocity was within the normal range. There was no evidence for stenosis. Trace regurgitation. LEFT ATRIUM: The atrium was normal in size. RIGHT VENTRICLE: The cavity size was normal. Wall thickness was normal. PULMONIC VALVE: Doppler: Transvalvular velocity was within the normal range. There was no evidence for stenosis. No regurgitation. TRICUSPID VALVE: Structurally normal valve. Doppler: Transvalvular velocity was within the normal range. Mild regurgitation. PULMONARY ARTERY: The main pulmonary artery was normal-sized. Systolic pressure was within the normal range. RIGHT ATRIUM: The atrium was normal in size. PERICARDIUM: There was no pericardial effusion. SYSTEMIC VEINS: Inferior vena cava: The vessel was normal in size. Patient weight: 197.6lb _Ejection fraction:_ 65-75% _Fractional shortening:_ 32% up to 5Kg 5-11.5Kg 11.6-22.9Kg 23-45Kg 45-57Kg Aortic Root 7-13 <17 13-22 17-27 17-27 LA diam 6-13 <23 24-38 33-47 37-40 RVID 10-17 7-15 7-15 7-18 8-17 LVIDd 12-22 <32 24-38 33-47 37-40 LVPW 2-4 3-6 5-7 6-8 7-8 IVS 2-4 3-6 5-7 6-8 7-8 BASIC MEASUREMENTS ADULT NORMAL Left ventricle LV internal dimension, ED, chordal *42.3 mm 43-52 level, PLAX LV internal dimension, ES, chordal 32.1 mm 23-38 level, PLAX Fractional shortening, chordal level, *24 % >29 PLAX LV posterior wall thickness, ED 10.9 mm IVS/LVPW ratio, ED 0.93 <1.3 Ventricular septum Septal thickness, ED 10.1 mm Aortic valve Leaflet separation 19 mm 15-26 BASIC MEASUREMENTS ADULT NORMAL Aortic valve Leaflet separation 19 mm 15-26 Aorta Root diameter, ED 29 mm 20-37 Left atrium Anterior-posterior dimension, ES 34 mm 19-40 Anterior-posterior dimension index, ES 1.73 cm/m^2 <2.2 LA/aortic root ratio 1.17 DOPPLER MEASUREMENTS ADULT NORMAL Main pulmonary artery Pressure, S 28 mm Hg =30 Aortic valve Peak velocity, S 129 cm/s Valve area, Vmax 1.87 cm^2 Valve area index, Vmax 0.95 cm^2/m^2 Mitral valve Peak E-wave velocity 68.1 cm/s Peak A-wave velocity 46.9 cm/s Deceleration time *289 ms 150-230 Peak E/A ratio 1.5 Maximal regurgitant velocity 250 cm/s Tricuspid valve Regurgitant peak velocity 231 cm/s Peak RV-RA gradient, S 21 mm Hg Maximal regurgitant velocity 231 cm/s Systemic veins Estimated CVP 10 mm Hg Right ventricle RV pressure, S *31 mm Hg <30 Pulmonic valve Peak velocity, S 85.5 cm/s LEGEND: Mean values are shown as u=mean value. Asterisk (*) ochoa values outside specified normal range. Prepared and signed by Lashay Snider [id number]
--- NOTE | 2016-08-13 11:10 | RADRPT ---
EXAM DATE/TIME: 08/13/2016 10:01 [facility] COMPARISON: MRI SCREENING SPINE W/O CONTRAST, August 12, 2016, 18:41. INDICATIONS : Abnormal MRI with inability to ambulate. CONTRAST: 18 cc Omniscan (gadodiamide) IV MEDICAL HISTORY : Hypertension. SURGICAL HISTORY : Cardiac ablation, Medtronic Synchromed II morphine pump, ankle, knee, elbow, shoulder ENCOUNTER: Subsequent ACUITY: 4-6 days PAIN SCORE: 5/10 LOCATION: cranial TECHNIQUE: Multiplanar, multisequence MRI examination of the cervical spine was performed. FINDINGS: Motion artifact. VERTEBRAE: Normal vertebral body height. Homogeneous marrow signal. ALIGNMENT: No evidence of subluxation. CORD: Normal configuration and signal. POST FOSSA: The cerebellar tonsils are normal in position. POST-CONTRAST: No abnormal areas of enhancement are seen. C2-C3: The thecal sac has a normal configuration. There is no evidence of disc herniation or spinal canal stenosis. The neural foramina are patent bilaterally. C3-C4: The thecal sac has a normal configuration. There is no evidence of disc herniation or spinal canal s tenosis. The neural foramina are patent bilaterally. C4-C5: The thecal sac has a normal configuration. There is no evidence of disc herniation or spinal canal s tenosis. The neural foramina are patent bilaterally. C5-C6: Mild/moderate broad-based protrusion, more eccentric to the right, abuts the ventral thecal sac witho ut canal stenosis The neural foramina are patent bilaterally. C6-C7: The thecal sac has a normal configuration. There is no evidence of disc herniation or spinal canal s tenosis. The neural foramina are patent bilaterally. C7-T1: The thecal sac has a normal configuration. There is no evidence of disc herniation or spinal canal s tenosis. The neural foramina are patent bilaterally. CONCLUSION: 1. Mild/moderate broad-based protrusion more eccentric to the right at C5-6. No canal stenosis. 2. No cord abnormality. Jovan Etienne MD on August 13, 2016 at 11:04 Board Certified Radiologist. This report was verified electronically.
--- NOTE | 2016-08-13 11:28 | HHI.PR ---
Objective Objective Results - Vital Signs Date Time Temp Pulse Resp B/P Pulse Ox O2 Delivery O2 Flow Rate FiO2 08/13/16 10:59 97.5 69 20 144/69 94 08/13/16 08:35 55 08/13/16 08:02 97.9 56 17 129/63 92 08/13/16 05:10 97.8 60 18 106/62 93 08/13/16 05:00 58 08/12/16 19:52 97.9 63 18 111/68 93 08/12/16 13:45 20 95 Room Air 08/12/16 12:47 64 20 111/59 99 Room Air 08/12/16 11:48 98.2 80 16 126/72 98 I/O 08/12/16 08/12/16 08/12/16 08/13/16 08/13/16 08/13/16 07:00 15:00 23:00 07:00 15:00 23:00 Intake Total 1420 ml Balance 1420 ml Intake Oral 720 ml IV Total 700 ml Result Diagram: 08/13/16 0449 08/13/16 0449 Other Results Laboratory Tests Test 08/12/16 08/13/16 13:40 04:49 White Blood Count 5.1 4.8 Red Blood Count 4.17 4.00 Hemoglobin 13.4 12.5 Hematocrit 38.3 36.4 Mean Corpuscular Volume 91.8 90.9 Mean Corpuscular Hemoglobin 32.2 31.3 Mean Corpuscular Hemoglobin 35.1 34.5 Concent Red Cell Distribution Width 14.7 14.5 Platelet Count 117 121 Mean Platelet Volume 8.8 9.5 Neutrophils (%) (Auto) 41.8 37.2 Lymphocytes (%) (Auto) 46.2 46.5 Monocytes (%) (Auto) 9.3 12.7 Eosinophils (%) (Auto) 2.2 2.6 Basophils (%) (Auto) 0.5 1.0 Neutrophils # (Auto) 2.1 1.8 Lymphocytes # (Auto) 2.4 2.2 Monocytes # (Auto) 0.5 0.6 Eosinophils # (Auto) 0.1 0.1 Basophils # (Auto) 0.0 0.0 CBC Comment DIFF FINAL AUTO DIFF Differential Comment AUTO DIFF CONFIRMED Prothrombin Time 11.5 Prothromb Time International 1.0 Ratio Activated Partial 28.9 Thromboplast Time Sodium Level 142 142 Potassium Level 4.1 4.3 Chloride Level 104 108 Carbon Dioxide Level 31.6 28.5 Anion Gap 6 6 Blood Urea Nitrogen 10 9 Creatinine 0.64 0.57 Estimat Glomerular Filtration 94 108 Rate Random Glucose 94 110 Calcium Level 9.0 8.6 Total Bilirubin 0.6 Aspartate Amino Transf 57 (AST/SGOT) Alanine Aminotransferase 29 (ALT/SGPT) Alkaline Phosphatase 95 Total Creatine Kinase 88 Troponin I 0.03 Total Protein 8.0 Albumin 3.6 Triglycerides Level 135 Cholesterol Level 115 LDL Cholesterol 58 HDL Cholesterol 30.1 Cholesterol/HDL Ratio 3.82 Physical Exam Physical Exam PHYSICAL EXAMINATION GENERAL: This is a well-developed, well-nourished female who appears to be in no acute distress. She is alert and awake, []. HEAD: Normocephalic without any lesion or mass noted. Facial features appear symmetric. EYES: Perrla, Normal eye movement, [] Icterus. [] Conj congestion. OROPHARYNGEAL: Oropharynx without erythema or edema. MOUTH/THROAT: Tongue midline []. Buccal mucosa is moist []. NECK: Supple. No nuchal rigidity or lymphadenopathy. Trachea midline without deviation. Thyroid not palpable, no bruits appreciated. CARDIAC: Regular rhythm, regular rate, S1 and S2 are heard. Murmur []; no gallops or rubs. LUNGS: Clear to auscultation bilaterally. [] wheeze, [] rhonchi or [] rale. No use of accessory muscles on inspiration or expiration. ABDOMEN: Soft, nontender, no organomegaly or masses. Bowel sounds are heard in all four quadrants. No rebound. No guarding. EXTREMITIES: [] edema. Pulses equal bilateral. [] cyanosis. NEUROLOGICAL: Patient mood and affect appropriate. Cranial nerves II through XII grossly intact. Muscle strength 5/5 in the upper and lower extremities bilaterally. Deep tendon reflexes are 2+ in the upper and lower extremities bilaterally. SKIN:Warm and moist PSYCH: Mood and affect appropriate A/P Assessment and Plan patient seen and examined Please refer to admission H & P for details awake alert and oreinted no focal deficit appreciate neuro input work up neg lipid profile noted PT eval pending symptoms likely sec to pain pump mal function and or overuse of pain meds patient to follow up outpatient with Pain management she has an appointment with Dr Cerda. cleared by neuro for discharge awaiting PT recommendations for discharge disposition discussed with patient discussed with Amber Barrett MD August 13, 2016 11:28
--- NOTE | 2016-08-13 19:04 | HHI.FF ---
Face to Face Verification Diagnosis: (1) COPD (chronic obstructive pulmonary disease) (2) Chronic pain (3) Generalized weakness (4) Hypertension (5) CVA (cerebral vascular accident) Physical Therapy Order: Evaluate and Treat, Improve ambulation, Strength and gait training Instructions: patient already has PT Home Health Nursing Order: Nursing assessment with vital signs I have seen patient Gwen Anna on 08/13/16. My clinical findings support the need for the requested home health care services because: Patient has SOB Deconditioned w/ increased weakness I certify that my clinical findings support that this patient is homebound because: Hx COPD- exertion dyspnea/weakness Linda Moss August 13, 2016 19:04
== END 2016-08-13 20:15 | disposition home or self-care (01) ==
LOC: NEPC 11:45 → NEDA 16:43 → NEPFCDU 17:30
PROVIDERS: ADMIT Internal Medicine; ATTEND Internal Medicine
DX: I63.9 Cerebral infarction, unspecified (principal); R47.81 Slurred speech; H53.8 Other visual disturbances; M06.9 Rheumatoid arthritis, unspecified; F41.9 Anxiety disorder, unspecified; I10 Essential (primary) hypertension; J44.9 Chronic obstructive pulmonary disease, unspecified; M50.30 Other cervical disc degeneration, unspecified cervical region; H91.92 Unspecified hearing loss, left ear; G89.29 Other chronic pain; F17.210 Nicotine dependence, cigarettes, uncomplicated; Z86.718 Personal history of other venous thrombosis and embolism; Z88.8 Allergy status to other drugs, medicaments and biological substances; Z98.890 Other specified postprocedural states; Z86.711 Personal history of pulmonary embolism
CPT/HCPCS: 70450; 70544; 70551; 71010; 72141; 72148; 72156; 76937; 80048; 80053; 80061; 82550; 84484; 85025; 85610; 85730; 92610; 93005; 93306; 93880; 97162; 99285; A9579; G0378; G8987; G8988; G8996; G8997; G8998; J1644; J7030

== ENCOUNTER 2016-08-29 19:20 | Emergency (ER) | payer MEDICARE, OTHER ==
[~2016-08-29] VITALS: Ht 165.1 cm; Wt 84.1 kg
[~2016-08-29 19:20] MED LIST changes: +ADVA250A INH; -ADVAI250I PO; -CIPR500T4 PO; -ENBR25IN3 SC; +EPIN1INJ17 IM; -EPIP0.3I IM; -METH2.5 PO; +METH2.5T PO; -METO50CR PO; -ONDA1TAB16 PO; -TRAM50 PO; +amitriptyline
[2016-08-29 19:30] VITALS: BP 176/84; PULSE 72; RESP 18; TEMP 98.4; O2SAT 97
[2016-08-29] MEDS ORDERED: ACETAMINOPHEN 325 MG TAB PO ONE (19:45)
[2016-08-29] MEDS ORDERED: ONDANSETRON HCL 4 MG/2 ML VIAL IV PUSH ONE (19:45)
[2016-08-29] MEDS ORDERED: SODIUM CHLORIDE 0.9% FLUSH 10 ML FLUSH IVF PRN (19:45)
[2016-08-29 19:53] VITALS: O2SAT 97
[2016-08-29 20:18] LABS: AUTOMATED NEUTROPHIL # 2.3 TH/MM3 (1.8-7.7); BASOPHIL % 0.5 % (0.0-2.0); EOSINOPHIL # 0.1 TH/MM3 (0-0.4); EOSINOPHIL % 2.8 % (0.0-4.0); HEMATOCRIT 37.3 % (35.0-46.0); HEMO FLAGS DIFF FINAL; LYMPH % 43.4 % (9.0-44.0); LYMPHOCYTE # 2.3 TH/MM3 (1.0-4.8); MEAN CELL VOLUME 91.2 FL (80.0-100.0); MEAN CORPUSCULAR HEMOGLOBIN 32.1 PG (27.0-34.0); MEAN CORPUSCULAR HGB CONC 35.2 % (32.0-36.0); MONO % 10.1 % (0.0-8.0); NEUT % 43.2 % (16.0-70.0); PLATELET COUNT 134 TH/MM3 (150-450); RED BLOOD COUNT 4.09 MIL/MM3 (4.00-5.30); RED CELL DISTRIBUTION WIDTH 14.3 % (11.6-17.2); WHITE BLOOD COUNT 5.4 TH/MM3 (4.0-11.0)
[2016-08-29 20:24] LABS: APTT (PATIENT) 27.6 SEC (24.3-30.1)
[2016-08-29 20:39] LABS: ALT (GPT) 39 U/L (10-53); ANION GAP 9 MEQ/L (5-15); AST (GOT) 57 U/L (15-37); BICARBONATE 27.4 MEQ/L (21.0-32.0); BLOOD UREA NITROGEN 9 MG/DL (7-18); CHLORIDE 104 MEQ/L (98-107); GLOMERULAR FILTRATION RATE 112 ML/MIN (>89); POTASSIUM 3.9 MEQ/L (3.5-5.1); SODIUM (NA) 140 MEQ/L (136-145)
--- NOTE | 2016-08-29 20:39 | PD ---
HPI Chief Complaint: Seizure Time Seen by Provider: 19:30 Travel History International Travel<30 days: No Contact w/Intl Traveler<30days: No Traveled to known affect area: No History of Present Illness HPI Patient is a 60 year old female who comes in after she states she had a seizure today. She says that she was in bed and she called out to her because she felt something coming on. She says she was feeling well yesterday and earlier today. Her reports that she seemed to be a little altered earlier today and he told her to go lay down in bed. He says when he went into the room, she was convulsing on the bed. He says it lasted about 15 minutes and she was confused for a period of time afterwards. She did not have any incontinence. She reports she has never had a seizure before. She complains of a headache and nausea currently. She denies any head trauma. She denies fever or chills. PFSH Past Medical History Arthritis: Yes (R.A.) Atrial Fibrillation: Yes Autoimmune Disease: Yes (R.A.) Blood Disorders: No Anxiety: Yes Depression: No Heart Rhythm Problems: Yes Cancer: No Cardiac Catheterization: No Cardiovascular Problems: Yes (ablation, pulm embolism) High Cholesterol: No Chest Pain: Yes Congestive Heart Failure: No COPD: Yes Cerebrovascular Accident: No Diabetes: No Diminished Hearing: Yes (L EAR DEAF) Endocrine: No Gastrointestinal Disorders: Yes GERD: No Glaucoma: No Genitourinary: Yes Headaches: Yes Hepatitis: No Hiatal Hernia: No Hypertension: Yes Immune Disorder: No Implanted Vascular Access Dvce: No Kidney Stones: No Musculoskeletal: Yes (OSTEOMYLITIS, BILATERAL CARPAL TUNNEL SURGERY) Neurologic: Yes Psychiatric: No Reproductive: Yes Respiratory: Yes (PE) Migraines: No Pneumonia: Yes Radiation Therapy: No Seizures: No Sleep Apnea: No Thyroid Disease: No Ulcer: No PNEUMOCCOCAL Vaccine (Year): 2 Menopausal: Yes : 2 Para: 2 Past Surgical History Abdominal Surgery: Yes AICD: No Appendectomy: Yes Arteriovenous Shunt: No Cardiac Surgery: Yes (ablation) Section: Yes (X 2) Cholecystectomy: Yes Coronary Artery Bypass Graft: No Ear Surgery: Yes (MASTOID TUMOR REMOVED) Endocrine Surgery: No Eye Surgery: No Genitourinary Surgery: Yes (BLADDER SLING) Gynecologic Surgery: Yes Hysterectomy: Yes Insulin Pump: No Joint Replacement: No Oral Surgery: Yes (UPPER TEETH REMOVED FOR DENTURES) Pacemaker: No Thoracic Surgery: No Other Surgery: Yes (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 Epinephrine Inj (Epinephrine) 0.3 Mg/0.3 Ml Pfpen 0.3 Mg IM ONCE PRN Xanax (Alprazolam) 0.25 Mg Tab 0.25 Mg PO Q8H PRN Review of Systems Except as stated in HPI: all other systems reviewed are Neg General / Constitutional: No: Fever, Chills Eyes: No: Blurred Vision HENT: Positive: Headaches Cardiovascular: No: Chest Pain or Discomfort Respiratory: Positive: Cough, Shortness of Breath, Hemoptysis Gastrointestinal: Positive: Nausea, No: Vomiting, Abdominal Pain Musculoskeletal: No: Myalgias, Weakness Skin: No Rash, No Change in Pigmentation Neurologic: Positive: Seizures, No: Weakness, Dizziness Physical Exam Narrative GENERAL: Awake and alert in no acute distress. SKIN: Focused skin assessment warm/dry. HEAD: Atraumatic. Normocephalic. EYES: Pupils equal and round. No scleral icterus. EOMI ENT: Mucous membranes pink and moist. NECK: Trachea midline. No JVD. CARDIOVASCULAR: Regular rate and rhythm. No murmur appreciated. RESPIRATORY: No accessory muscle use. Clear to auscultation. Breath sounds equal bilaterally. GASTROINTESTINAL: Abdomen soft, non-tender, nondistended. MUSCULOSKELETAL: No obvious deformities. No clubbing. No cyanosis. No edema. NEUROLOGICAL: Awake and alert. No obvious cranial nerve deficits. Motor grossly within normal limits. Normal speech. PSYCHIATRIC: Appropriate mood and affect; insight and judgment normal. Data Data Last Documented VS Vital Signs Date Time Temp Pulse Resp B/P Pulse Ox O2 Delivery O2 Flow Rate FiO2 08/29/16 19:53 97 Room Air 08/29/16 19:30 98.4 72 18 176/84 Orders Complete Blood Count With Diff (08/29/16 19:42) Drug Screen, Random Urine (08/29/16 19:42) Electrocardiogram (08/29/16 ) Ct Brain W/O Iv Contrast(Rout) (08/29/16 ) Blood Glucose (08/29/16 19:42) Ecg Monitoring (08/29/16 19:42) Iv Access Insert/Monitor (08/29/16 19:42) Oximetry (08/29/16 19:42) Comprehensive Metabolic Panel (08/29/16 19:42) Sodium Chloride 0.9% Flush (Ns Flush) (08/29/16 19:45) Ua Includes Microscopic (08/29/16 19:42) Urinalysis - C+S If Indicated (08/29/16 19:42) Chest, Pa & Lat (08/29/16 ) Troponin I (08/29/16 19:42) Acetaminophen (Tylenol) (08/29/16 19:45) Ondansetron Inj (Zofran Inj) (08/29/16 19:45) Act Partial Throm Time (Ptt) (08/29/16 19:44) Prothrombin Time / Inr (Pt) (08/29/16 19:44) Ct Pulmonary Angiogram (08/29/16 ) Iohexol 350 Inj (Omnipaque 350 Inj) (08/29/16 21:28) Labs Laboratory Tests Test 08/29/16 20:00 White Blood Count 5.4 TH/MM3 Red Blood Count 4.09 MIL/MM3 Hemoglobin 13.1 GM/DL Hematocrit 37.3 % Mean Corpuscular Volume 91.2 FL Mean Corpuscular Hemoglobin 32.1 PG Mean Corpuscular Hemoglobin 35.2 % Concent Red Cell Distribution Width 14.3 % Platelet Count 134 TH/MM3 Mean Platelet Volume 9.2 FL Neutrophils (%) (Auto) 43.2 % Lymphocytes (%) (Auto) 43.4 % Monocytes (%) (Auto) 10.1 % Eosinophils (%) (Auto) 2.8 % Basophils (%) (Auto) 0.5 % Neutrophils # (Auto) 2.3 TH/MM3 Lymphocytes # (Auto) 2.3 TH/MM3 Monocytes # (Auto) 0.5 TH/MM3 Eosinophils # (Auto) 0.1 TH/MM3 Basophils # (Auto) 0.0 TH/MM3 CBC Comment DIFF FINAL Differential Comment Prothrombin Time 11.0 SEC Prothromb Time International 1.0 RATIO Ratio Activated Partial 27.6 SEC Thromboplast Time Sodium Level 140 MEQ/L Potassium Level 3.9 MEQ/L Chloride Level 104 MEQ/L Carbon Dioxide Level 27.4 MEQ/L Anion Gap 9 MEQ/L Blood Urea Nitrogen 9 MG/DL Creatinine 0.55 MG/DL Estimat Glomerular Filtration 112 ML/MIN Rate Random Glucose 90 MG/DL Calcium Level 8.5 MG/DL Total Bilirubin 0.7 MG/DL Aspartate Amino Transf 57 U/L (AST/SGOT) Alanine Aminotransferase 39 U/L (ALT/SGPT) Alkaline Phosphatase 99 U/L Troponin I 0.02 NG/ML Total Protein 8.3 GM/DL Albumin 3.7 GM/DL MDM Medical Decision Making Medical Screen Exam Complete: Yes Emergency Medical Condition: Yes Medical Record Reviewed: Yes Interpretation(s) ECG shows sinus dania at 57, no ST elevation or depression. Normal intervals. Differential Diagnosis Seizure versus electrolyte abnormality versus dehydration versus intoxication Narrative Course Patient is a 60-year-old female who comes in after reported seizure like activity this afternoon. Currently her exam shows no neurologic abnormalities. IV established, labs sent. Lab results are within normal limits. CT of the head performed shows no acute findings. CT of the chest performed due to history of PE and reports of coughing up blood. CT of the chest shows no PE, no acute abnormalities. I discussed the results with the patient. I expressed that she needs to follow-up with her doctors. She has a neurology appointment this week. She will be discharged home. Advised to return to the ED as needed for any worsening symptoms. Last [address] 08/29/16 Signed Impressions: Service Date/Time: Monday, August 29, 2016 21:18 - CONCLUSION: Normal examination for a patient of this age. Michael Link MD Chest X-Ray 08/29/16 Signed Impressions: Service Date/Time: Monday, August 29, 2016 20:25 - CONCLUSION: 1. Minimal basilar atelectasis. No effusion or pneumothorax. Michael Link MD CT Angiography 08/29/16 Signed Impressions: Service Date/Time: Monday, August 29, 2016 21:22 - CONCLUSION: 1. Negative for pulmonary embolism. Mild emphysema. Dependent atelectasis in the lungs. Fatty liver. Michael Link MD Diagnosis Primary Impression: Seizure Patient Instructions: General Instructions, New-Onset Seizure in Adults (ED) Additional Instructions: Make sure you drink plenty of fluids. No driving until you are seizure free for 6 months. If you have another seizure, return to the emergency department. Follow-up with neurology at her scheduled appointment for further management. Return any time for any worsening symptoms. Disposition: 01 DISCHARGE HOME Condition: Stable Scarlett Sharma MD Aug 29, 2016 20:39
[2016-08-29 20:43] LABS: ALKALINE PHOSPHATASE 99 U/L (45-117); TOTAL BILIRUBIN ADULT 0.7 MG/DL (0.2-1.0)
--- NOTE | 2016-08-29 21:20 | RADRPT ---
EXAM DATE/TIME: 08/29/2016 20:25 [facility] COMPARISON: No previous studies available for comparison. INDICATIONS : Short of breath MEDICAL HISTORY : Hypertension. Chronic obstructive pulmonary disease. Arthritis. A-fib. Anxiety SURGICAL HISTORY : Appendectomy. section. Hysterectomy. Mastoid tumor removal. Cardiac ENCOUNTER: Initial ACUITY: 1 day PAIN SCORE: 6/10 LOCATION: Bilateral chest FINDINGS: PA and lateral views of the chest demonstrate minimal basilar opacity most characteristic of atelecta sis. No effusion. No pneumothorax. Heart size mildly enlarged. CONCLUSION: 1. Minimal basilar atelectasis. No effusion or pneumothorax. Michael Link MD on August 29, 2016 at 21:16 Board Certified Radiologist. This report was verified electronically.
[2016-08-29] MEDS ORDERED: IOHEXOL 350 MG/ML 10 ML VIAL (for RAD DIAG) IV ONE (21:28)
--- NOTE | 2016-08-29 21:28 | RADRPT ---
EXAM DATE/TIME: 08/29/2016 21:18 [facility] COMPARISON: CT BRAIN W/O CONTRAST, August 12, 2016, 14:01. INDICATIONS : Altered mental status, possible seizure. RADIATION DOSE: 56.35 CTDIvol (mGy) MEDICAL HISTORY : Hypertension. Mastoid tumor, left. SURGICAL HISTORY : Mastoid tumor removal, left. ENCOUNTER: Initial ACUITY: 1 day PAIN SCALE: 0/10 LOCATION: cranial TECHNIQUE: Multiple contiguous axial images were obtained of the head. Using automated exposure control and adj ustment of the mA and/or kV according to patient size, radiation dose was kept as low as reasonably a chievable to obtain optimal diagnostic quality images. FINDINGS: CEREBRUM: The ventricles are normal for age. No evidence of midline shift, mass lesion, hemorrhage or acute in farction. No extra-axial fluid collections are seen. POSTERIOR FOSSA: The cerebellum and brainstem are intact. The 4th ventricle is midline. The cerebellopontine angle i s unremarkable. EXTRACRANIAL: The visualized portion of the orbits is intact. SKULL: The calvaria is intact. No evidence of skull fracture. CONCLUSION: Normal examination for a patient of this age. Michael Link MD on August 29, 2016 at 21:26 Board Certified Radiologist. This report was verified electronically.
--- NOTE | 2016-08-29 21:37 | RADRPT ---
EXAM DATE/TIME: 08/29/2016 21:22 [facility] COMPARISON: No previous studies available for comparison. INDICATIONS : Short of breath. IV CONTRAST: 75 cc Omnipaque 350 (iohexol) IV RADIATION DOSE: 13.52 CTDIvol (mGy) MEDICAL HISTORY : Hypertension. Chronic obstructive pulmonary disease. Cardiovascular diseasePulmonary embolism. SURGICAL HISTORY : Ablation. ENCOUNTER: Initial ACUITY: 1 day PAIN SCALE: 0/10 LOCATION: chest TECHNIQUE: Volumetric scanning of the chest was performed using a pulmonary embolism protocol MIP images were re constructed. Using automated exposure control and adjustment of the mA and/or kV according to patien t size, radiation dose was kept as low as reasonably achievable to obtain optimal diagnostic quality images. FINDINGS: No filling defects to suggest pulmonary embolus. Minimal dependent atelectasis in the lungs but no co nsolidation and no pleural or pericardial effusion. No pneumothorax. Upper abdomen reveals fatty liver. CONCLUSION: 1. Negative for pulmonary embolism. Mild emphysema. Dependent atelectasis in the lungs. Fatty liver. Michael Link MD on August 29, 2016 at 21:32 Board Certified Radiologist. This report was verified electronically.
[2016-08-29 22:45] VITALS: BP 135/75
--- NOTE | 2016-08-31 10:02 | EKG ---
Date Performed: 08/29/2016 Time Performed: 19:57:55 PTAGE: 60 years EKG: SINUS BRADYCARDIA NONSPECIFIC T-WAVE ABNORMALITY BORDERLINE ECG PREVIOUS TRACING : 08/12/2016 13.46 DOCTOR: Ludwin Palomo Interpretating Date/Time 08/31/2016 09:49:32
== END 2016-08-29 22:50 | disposition home or self-care (01) ==
LOC: NEPE 19:20
DX: R56.9 Unspecified convulsions (principal); I10 Essential (primary) hypertension; I48.91 Unspecified atrial fibrillation; J44.9 Chronic obstructive pulmonary disease, unspecified; R06.02 Shortness of breath; Z72.0 Tobacco use
CPT/HCPCS: 70450; 71020; 71275; 80053; 84484; 85025; 85610; 85730; 93005; 96374; 99285; J2405; Q9967

== ENCOUNTER 2016-11-03 13:45 | Emergency (ER) | payer MEDICARE, OTHER ==
[2016-11-03 13:49] VITALS: BP 153/73; PULSE 82; RESP 18; TEMP 98.1; O2SAT 98
--- NOTE | 2016-11-03 13:56 | PD ---
Physical Exam Time Seen by Provider: 13:54 Narrative 61yo F c/o left leg pain and swelling x 3 days. Hx of PE. Not currently on anticoagulants. Surgery 4 months for insertion of pain pump for RA and says shes been bedridden for 4 months. Patient seen in triage. VS reviewed. Awaiting bed placement. Data Data Last Documented VS Vital Signs Date Time Temp Pulse Resp B/P Pulse Ox O2 Delivery O2 Flow Rate FiO2 11/03/16 13:49 98.1 82 18 153/73 98 MDM Supervised Visit with HEIDI: Sonali Prieto Nov 03, 2016 13:55
--- NOTE | 2016-11-03 15:58 | RADRPT ---
EXAM DATE/TIME: 11/03/2016 15:24 [facility] COMPARISON: US CAROTID ARTERIES, August 12, 2016, 15:41. INDICATIONS : Left leg edema. MEDICAL HISTORY : Chronic obstructive pulmonary disease. Hypertension. Pulmonary embolism. Atrial fibrillation. A rthritis. Anxiety. Chemotherapy. Phlebitis. Left arm osteomylitis. SURGICAL HISTORY : Cholecystectomy. Appendectomy. Hysterectomy. Cardiac ablation. section. Bilateral knee hamlin rgery. Carpal tunnel surgery. Left mastoid tumor removal. ENCOUNTER: Initial ACUITY: 1 day PAIN SCORE: 8/10 LOCATION: Left leg. TECHNIQUE: Venous ultrasound of the leg was performed from the inguinal ligament to the proximal calf. Real-peggy e, color Doppler and spectral tracing, compression and augmentation techniques were used. FINDINGS: There is normal compressibility of the deep venous system from the inguinal region to the proximal ca lf. No echogenic clot is seen in the lumen of the common femoral, femoral, popliteal, and posterior tibial veins. There is a normal response of the venous system to proximal and distal augmentation an d respiration. CONCLUSION: 1. No DVT identified. Rashaun Parsons MD on November 03, 2016 at 15:55 Board Certified Radiologist. This report was verified electronically.
[2016-11-03] MEDS ORDERED: MORPHINE SULFATE 4 MG/ML INJ IV PUSH ONE (17:00)
--- NOTE | 2016-11-03 17:40 | PD ---
HPI Chief Complaint: Musculoskeletal Complaint Time Seen by Provider: 14:57 Travel History International Travel<30 days: No Contact w/Intl Traveler<30days: No Traveled to known affect area: No History of Present Illness HPI This is a 61-year-old female who presents to the emergency department with left lower extremity pain and swelling that's been going on for 4 days, constant, moderate severity associated with some shortness of breath. The patient reportedly had a morphine pump put in 4 months ago at which point her anticoagulation was discontinued. She's had blood clots in the past. She used to be on Coumadin. She denies any fevers or chills. She says she's been bedbound much of the time in the past 4 months. PFSH Past Medical History Arthritis: Yes (R.A.) Atrial Fibrillation: Yes Autoimmune Disease: Yes (R.A.) Blood Disorders: No Anxiety: Yes Depression: No Heart Rhythm Problems: Yes Cancer: No Cardiac Catheterization: No Cardiovascular Problems: Yes (ablation, pulm embolism) High Cholesterol: No Chest Pain: Yes Congestive Heart Failure: No COPD: Yes Cerebrovascular Accident: No Diabetes: No Diminished Hearing: Yes (L EAR DEAF) Endocrine: No Gastrointestinal Disorders: Yes GERD: No Glaucoma: No Genitourinary: Yes Headaches: Yes Hepatitis: No Hiatal Hernia: No Hypertension: Yes Immune Disorder: No Implanted Vascular Access Dvce: No Kidney Stones: No Medical other: Yes (ARTHRITIS- PHLEBITIS LEFT ARM-OSTEOMYLITIS) Musculoskeletal: Yes (OSTEOMYLITIS, BILATERAL CARPAL TUNNEL SURGERY) Neurologic: Yes Psychiatric: No Reproductive: Yes Respiratory: Yes (PE) Migraines: No Pneumonia: Yes Radiation Therapy: No Seizures: No Sleep Apnea: No Thyroid Disease: No Ulcer: No PNEUMOCCOCAL Vaccine (Year): 2 Menopausal: Yes : 2 Para: 2 Past Surgical History Abdominal Surgery: Yes AICD: No Appendectomy: Yes Arteriovenous Shunt: No Cardiac Surgery: Yes (ablation) Section: Yes (X 2) Cholecystectomy: Yes Coronary Artery Bypass Graft: No Ear Surgery: Yes (MASTOID TUMOR REMOVED) Endocrine Surgery: No Eye Surgery: No Genitourinary Surgery: Yes (BLADDER SLING) Gynecologic Surgery: Yes Hysterectomy: Yes Insulin Pump: No Joint Replacement: No Oral Surgery: Yes (UPPER TEETH REMOVED FOR DENTURES) Pacemaker: No Thoracic Surgery: No Other Surgery: Yes (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) Social History Alcohol Use: No Tobacco Use: Yes (1ppd) Substance Use: No Allergies-Medications (Allergen,Severity, Reaction): Coded Allergies: cortisone (Unverified Allergy, Intermediate, Hypertension, 11/04/16) CAUSES RASH AND HIGH BLOOD PRESSURE Reported Meds & Prescriptions Reported Meds & Active Scripts Active Reported Methotrexate 25 mg/ml Vial (Methotrexate Sodium/Pf) 25 Mg/1 Ml Vial 0.6 Ml SQ WEEKLY Orencia Inj (Abatacept Inj) 125 Mg/Ml Syr 125 Mg SQ Q7D Furosemide 20 Mg Tab 20 Mg PO DAILY Gabapentin 300 Mg Cap 300 Mg PO TID Duloxetine DR (Duloxetine HCl) 60 Mg Capdr 60 Mg PO BID Alprazolam 1 Mg Tab 1 Mg PO TID PRN Amitriptyline (Amitriptyline HCl) 25 Mg Tab 25 Mg PO HS Advair Diskus Inh (Fluticasone-Salmeterol Inh) 250-50 Mcg/Blist Aer 1 Puff INH BID Rinse mouth after use. Epinephrine Inj (Epinephrine) 0.3 Mg/0.3 Ml Pfpen 0.3 Mg IM ONCE PRN Review of Systems Except as stated in HPI: all other systems reviewed are Neg Physical Exam Narrative GENERAL:Well appearing, no acute distress SKIN: Focused skin assessment warm and dry. HEAD: Atraumatic. Normocephalic. EYES: Pupils equal and round. No injection or drainage. ENT: Moist mucous membranes NECK: Trachea midline. CARDIOVASCULAR: Regular rate and rhythm. No murmur appreciated. RESPIRATORY: Clear to auscultation. Breath sounds equal bilaterally. GASTROINTESTINAL: Abdomen soft, non-tender, nondistended. MUSCULOSKELETAL: Swelling of the left lower extremity greater than the right, positive Homans sign NEUROLOGICAL: Awake and alert. No obvious cranial nerve deficits. Moving all extremities. PSYCHIATRIC: Appropriate mood and affect; insight and judgment normal. Data Data Last Documented VS Orders Orders Complete Blood Count With Diff (11/03/16 15:09) Comprehensive Metabolic Panel (11/03/16 15:09) Ct Pulmonary Angiogram (11/03/16 ) Us Leg Venous Doppler (11/03/16 ) Prothrombin Time / Inr (Pt) (11/03/16 15:09) Act Partial Throm Time (Ptt) (11/03/16 15:09) ^ Insert Iv (11/03/16 15:09) Morphine Inj (Morphine Inj) (11/03/16 17:00) Iohexol 350 Inj (Omnipaque 350 Inj) (11/03/16 19:27) Oxycodone-Acetamin 5-325 Mg (Percocet (11/03/16 20:15) Labs Laboratory Tests Test 11/03/16 17:40 White Blood Count 5.5 TH/MM3 Red Blood Count 4.21 MIL/MM3 Hemoglobin 13.4 GM/DL Hematocrit 38.7 % Mean Corpuscular Volume 91.9 FL Mean Corpuscular Hemoglobin 31.8 PG Mean Corpuscular Hemoglobin Concent 34.6 % Red Cell Distribution Width 13.6 % Platelet Count 144 TH/MM3 Mean Platelet Volume 9.1 FL Neutrophils (%) (Auto) 44.6 % Lymphocytes (%) (Auto) 44.9 % Monocytes (%) (Auto) 7.3 % Eosinophils (%) (Auto) 2.6 % Basophils (%) (Auto) 0.6 % Neutrophils # (Auto) 2.5 TH/MM3 Lymphocytes # (Auto) 2.5 TH/MM3 Monocytes # (Auto) 0.4 TH/MM3 Eosinophils # (Auto) 0.1 TH/MM3 Basophils # (Auto) 0.0 TH/MM3 CBC Comment DIFF FINAL Differential Comment Prothrombin Time 11.2 SEC Prothromb Time International Ratio 1.0 RATIO Activated Partial Thromboplast Time 29.6 SEC Blood Urea Nitrogen 7 MG/DL Creatinine 0.63 MG/DL Random Glucose 84 MG/DL Total Protein 8.3 GM/DL Albumin 3.4 GM/DL Calcium Level 8.7 MG/DL Alkaline Phosphatase 119 U/L Aspartate Amino Transf (AST/SGOT) 72 U/L Alanine Aminotransferase (ALT/SGPT) 31 U/L Total Bilirubin 0.8 MG/DL Sodium Level 141 MEQ/L Potassium Level 4.3 MEQ/L Chloride Level 104 MEQ/L Carbon Dioxide Level 31.5 MEQ/L Anion Gap 6 MEQ/L Estimat Glomerular Filtration Rate 96 ML/MIN [facility] Medical Decision Making Medical Screen Exam Complete: Yes Emergency Medical Condition: Yes Interpretation(s) Afebrile, hypertensive Differential Diagnosis DVT, pulmonary embolism, pneumonia, cellulitis, lymphedema Narrative Course This is a 61-year-old female who has a history of DVT but has been off Coumadin because she had a morphine pump implanted. She is placed in a monitor and an IV was established. Labs are all reassuring. She is also complaining of some shortness of breath. Ultrasound was obtained for DVT and CT pulmonary angiogram was obtained. If reassuring at think patient can be discharged home. Lorena Hay MD Nov 03, 2016 17:40
[2016-11-03 17:53] LABS: AUTOMATED NEUTROPHIL # 2.5 TH/MM3 (1.8-7.7); BASOPHIL % 0.6 % (0.0-2.0); EOSINOPHIL # 0.1 TH/MM3 (0-0.4); EOSINOPHIL % 2.6 % (0.0-4.0); HEMATOCRIT 38.7 % (35.0-46.0); HEMO FLAGS DIFF FINAL; LYMPH % 44.9 % (9.0-44.0); LYMPHOCYTE # 2.5 TH/MM3 (1.0-4.8); MEAN CELL VOLUME 91.9 FL (80.0-100.0); MEAN CORPUSCULAR HEMOGLOBIN 31.8 PG (27.0-34.0); MEAN CORPUSCULAR HGB CONC 34.6 % (32.0-36.0); MONO % 7.3 % (0.0-8.0); NEUT % 44.6 % (16.0-70.0); PLATELET COUNT 144 TH/MM3 (150-450); RED BLOOD COUNT 4.21 MIL/MM3 (4.00-5.30); RED CELL DISTRIBUTION WIDTH 13.6 % (11.6-17.2); WHITE BLOOD COUNT 5.5 TH/MM3 (4.0-11.0)
[2016-11-03 18:12] LABS: APTT (PATIENT) 29.6 SEC (24.3-30.1); PROTHROMBIN TIME - PATIENT 11.2 SEC (9.8-11.6)
[2016-11-03 18:26] LABS: ALKALINE PHOSPHATASE 119 U/L (45-117); TOTAL BILIRUBIN ADULT 0.8 MG/DL (0.2-1.0)
[2016-11-03 18:31] LABS: ALT (GPT) 31 U/L (10-53); ANION GAP 6 MEQ/L (5-15); AST (GOT) 72 U/L (15-37); BICARBONATE 31.5 MEQ/L (21.0-32.0); BLOOD UREA NITROGEN 7 MG/DL (7-18); CHLORIDE 104 MEQ/L (98-107); GLOMERULAR FILTRATION RATE 96 ML/MIN (>89); SODIUM (NA) 141 MEQ/L (136-145)
[2016-11-03 18:32] LABS: POTASSIUM 4.3 MEQ/L (3.5-5.1)
[2016-11-03] MEDS ORDERED: GABA300C5 PO (19:10)
[2016-11-03] MEDS ORDERED: DULO1CAP3 PO (19:10)
[2016-11-03] MEDS ORDERED: AMIT25TA9 PO (19:10)
[2016-11-03] MEDS ORDERED: ABAT1INJ SQ (19:10)
[2016-11-03] MEDS ORDERED: ALPR1TAB3 PO (19:10)
[2016-11-03] MEDS ORDERED: FURO20TA PO (19:10)
[2016-11-03] MEDS ORDERED: METH25IN11 SQ (19:10)
[2016-11-03] MEDS ORDERED: IOHEXOL 350 MG/ML 10 ML VIAL (for RAD DIAG) IV ONE (19:27)
[2016-11-03 19:29] VITALS: BP 125/73; PULSE 67; RESP 17; O2SAT 100
--- NOTE | 2016-11-03 19:57 | PD ---
Data Data Last Documented VS Vital Signs Date Time Temp Pulse Resp B/P Pulse Ox O2 Delivery O2 Flow Rate FiO2 11/03/16 19:29 67 17 125/73 100 11/03/16 13:49 98.1 Orders Complete Blood Count With Diff (11/03/16 15:09) Comprehensive Metabolic Panel (11/03/16 15:09) Ct Pulmonary Angiogram (11/03/16 ) Us Leg Venous Doppler (11/03/16 ) Prothrombin Time / Inr (Pt) (11/03/16 15:09) Act Partial Throm Time (Ptt) (11/03/16 15:09) ^ Insert Iv (11/03/16 15:09) Morphine Inj (Morphine Inj) (11/03/16 17:00) Iohexol 350 Inj (Omnipaque 350 Inj) (11/03/16 19:27) Oxycodone-Acetamin 5-325 Mg (Percocet (11/03/16 20:15) Labs Laboratory Tests Test 11/03/16 17:40 White Blood Count 5.5 TH/MM3 Red Blood Count 4.21 MIL/MM3 Hemoglobin 13.4 GM/DL Hematocrit 38.7 % Mean Corpuscular Volume 91.9 FL Mean Corpuscular Hemoglobin 31.8 PG Mean Corpuscular Hemoglobin 34.6 % Concent Red Cell Distribution Width 13.6 % Platelet Count 144 TH/MM3 Mean Platelet Volume 9.1 FL Neutrophils (%) (Auto) 44.6 % Lymphocytes (%) (Auto) 44.9 % Monocytes (%) (Auto) 7.3 % Eosinophils (%) (Auto) 2.6 % Basophils (%) (Auto) 0.6 % Neutrophils # (Auto) 2.5 TH/MM3 Lymphocytes # (Auto) 2.5 TH/MM3 Monocytes # (Auto) 0.4 TH/MM3 Eosinophils # (Auto) 0.1 TH/MM3 Basophils # (Auto) 0.0 TH/MM3 CBC Comment DIFF FINAL Differential Comment Prothrombin Time 11.2 SEC Prothromb Time International 1.0 RATIO Ratio Activated Partial 29.6 SEC Thromboplast Time Sodium Level 141 MEQ/L Potassium Level 4.3 MEQ/L Chloride Level 104 MEQ/L Carbon Dioxide Level 31.5 MEQ/L Anion Gap 6 MEQ/L Blood Urea Nitrogen 7 MG/DL Creatinine 0.63 MG/DL Estimat Glomerular Filtration 96 ML/MIN Rate Random Glucose 84 MG/DL Calcium Level 8.7 MG/DL Total Bilirubin 0.8 MG/DL Aspartate Amino Transf 72 U/L (AST/SGOT) Alanine Aminotransferase 31 U/L (ALT/SGPT) Alkaline Phosphatase 119 U/L Total Protein 8.3 GM/DL Albumin 3.4 GM/DL [facility] Supervised Visit with HEIDI: No Narrative Course Patient care assumed from Dr. Lorena Gurrola at 1900. This is 61-year-old female who I was instructed to follow-up DVT study as well as CT pulmonary embolism. Last 24 hours Impressions Lower Extremity Ultrasound 11/03/16 Signed Impressions: Service Date/Time: Thursday, November 03, 2016 15:24 - CONCLUSION: 1. No DVT identified. Rashaun Parsons MD CT Angiography 11/03/16 Signed Impressions: Service Date/Time: Thursday, November 03, 2016 19:33 - CONCLUSION: 1. No pulmonary embolus. 2. Mildly enlarged and increased size of a left internal mammary lymph node, nonspecific. Please confirm the patient has obtained her recent mammogram and if not, one should be scheduled on an outpatient, non-emergent basis. 3. Mild emphysema. 4. Coronary artery calcification. 5. Fatty liver. Vince Bowman MD Images reviewed with the patient who states that her leg swelling the same way it was when she had a blood clot last time. I recommended that she have a repeat ultrasound in a week to confirm that she does not have a DVT. She was reassured and recommended follow-up the primary care physician. She wished for discharge. She stable for such. 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 Disposition: 01 DISCHARGE HOME Condition: Stable Harjit Barfield MD Nov 03, 2016 19:57
--- NOTE | 2016-11-03 20:01 | RADRPT ---
EXAM DATE/TIME: 11/03/2016 19:33 [facility] COMPARISON: CT PULMONARY ANGIOGRAM, August 29, 2016, 21:22. CT PULMONARY ANGIOGRAM, October 14, 2014, 22:47. INDICATIONS : Shortness of breath and lower extremity swelling. IV CONTRAST: 75 cc Omnipaque 350 (iohexol) IV RADIATION DOSE: 11.39 CTDIvol (mGy) MEDICAL HISTORY : Cardiovascular disease. Pulmonary Embolism. Hypertension. Chronic obstructive pulmonary disease. SURGICAL HISTORY : Ablation. ENCOUNTER: Initial ACUITY: 3 days PAIN SCALE: 0/10 LOCATION: Bilateral chest TECHNIQUE: Volumetric scanning of the chest was performed using a pulmonary embolism protocol MIP images were re constructed. Using automated exposure control and adjustment of the mA and/or kV according to patien t size, radiation dose was kept as low as reasonably achievable to obtain optimal diagnostic quality images. DICOM format image data is available electronically for review and comparison. Follow-up recommendations for detected pulmonary nodules are based at a minimum on nodule size and pa tient risk factors according to Fleischner Society Guidelines. FINDINGS: PULMONARY ARTERIES: No filling defects are seen in the pulmonary arteries through the segmental level. LUNGS: Mild emphysema again noted. Long-term stable 3 mm nodule right middle lobe. PLEURAE: There is no pleural thickening or pleural effusion. MEDIASTINUM: Stable, normal heart size. Coronary artery calcification noted. There is a left internal mammary lymp h node that measures 11 mm in size, larger than on prior studies.. MUSCULOSKELETAL: Within normal limits for patient age. MISCELLANEOUS: The visualized upper abdominal organs demonstrate no acute abnormality. CONCLUSION: 1. No pulmonary embolus. 2. Mildly enlarged and increased size of a left internal mammary lymph node, nonspecific. Please conf irm the patient has obtained her recent mammogram and if not, one should be scheduled on an outpatien t, non-emergent basis. 3. Mild emphysema. 4. Coronary artery calcification. 5. Fatty liver. Vince Bowman MD on November 03, 2016 at 19:55 Board Certified Radiologist. This report was verified electronically.
[2016-11-03] MEDS ORDERED: oxyCODONE/ACETAMINOPHEN 5 MG/325 MG TAB PO ONE (20:15)
== END 2016-11-03 21:12 | disposition home or self-care (01) ==
LOC: NEPE 13:45
DX: M79.605 Pain in left leg (principal); R22.42 Localized swelling, mass and lump, left lower limb; R06.02 Shortness of breath; I10 Essential (primary) hypertension; H91.92 Unspecified hearing loss, left ear; F17.200 Nicotine dependence, unspecified, uncomplicated; Z86.711 Personal history of pulmonary embolism; Z87.39 Personal history of other diseases of the musculoskeletal system and connective tissue; Z86.79 Personal history of other diseases of the circulatory system; Z86.2 Personal history of diseases of the blood and blood-forming organs and certain disorders involving the immune mechanism; Z86.59 Personal history of other mental and behavioral disorders; Z87.09 Personal history of other diseases of the respiratory system; Z87.19 Personal history of other diseases of the digestive system; Z87.448 Personal history of other diseases of urinary system; Z86.69 Personal history of other diseases of the nervous system and sense organs
CPT/HCPCS: 71275; 80053; 85025; 85610; 85730; 93971; 96374; 99285; J2270; Q9967

== ENCOUNTER 2017-03-31 16:54 | Emergency (ER) | payer MEDICARE, OTHER ==
[~2017-03-31 16:54] MED LIST changes: +ABAT1INJ SQ; -ALPR.25 PO; +ALPR1TAB3 PO; +AMIT25TA9 PO; +DULO1CAP3 PO; +FURO20TA PO; -GABA100C4 PO; +GABA300C5 PO; -METH2.5T PO; +METH25IN11 SQ; -amitriptyline
[2017-03-31 16:57] VITALS: BP 166/67; PULSE 71; RESP 16; TEMP 98.4; O2SAT 97
--- NOTE | 2017-03-31 18:13 | RADRPT ---
EXAM DATE/TIME: 03/31/2017 17:44 [facility] COMPARISON: CT BRAIN W/O CONTRAST, August 29, 2016, 21:18. INDICATIONS : Disoriented,trouble with speech RADIATION DOSE: 56.35 CTDIvol (mGy) MEDICAL HISTORY : Cardiovascular disease. Hypertension. Chronic obstructive pulmonary disease. SURGICAL HISTORY : Hysterectomy. ENCOUNTER: Initial ACUITY: 1 day PAIN SCALE: 7/10 LOCATION: cranial TECHNIQUE: Multiple contiguous axial images were obtained of the head. Using automated exposure control and adj ustment of the mA and/or kV according to patient size, radiation dose was kept as low as reasonably a chievable to obtain optimal diagnostic quality images. DICOM format image data is available electro nically for review and comparison. FINDINGS: CEREBRUM: The ventricles are normal for age. No evidence of midline shift, mass lesion, hemorrhage or acute in farction. No extra-axial fluid collections are seen. POSTERIOR FOSSA: The cerebellum and brainstem are intact. The 4th ventricle is midline. The cerebellopontine angle i s unremarkable. EXTRACRANIAL: Surgical changes of the left mastoid bone again noted. SKULL: The calvaria is intact. No evidence of skull fracture. CONCLUSION: No acute intracranial abnormality. Vince Bowman MD on March 31, 2017 at 18:09 Board Certified Radiologist. This report was verified electronically.
[2017-03-31 18:23] LABS: AUTOMATED NEUTROPHIL # 2.5 TH/MM3 (1.8-7.7); BASOPHIL % 0.7 % (0.0-2.0); EOSINOPHIL # 0.2 TH/MM3 (0-0.4); EOSINOPHIL % 3.9 % (0.0-4.0); HEMATOCRIT 38.3 % (35.0-46.0); HEMOGLOBIN 13.3 GM/DL (11.6-15.3); LYMPH % 42.9 % (9.0-44.0); LYMPHOCYTE # 2.4 TH/MM3 (1.0-4.8); MEAN CELL VOLUME 89.9 FL (80.0-100.0); MEAN CORPUSCULAR HEMOGLOBIN 31.3 PG (27.0-34.0); MEAN CORPUSCULAR HGB CONC 34.8 % (32.0-36.0); MEAN PLATELET VOLUME 8.5 FL (7.0-11.0); MONO % 7.8 % (0.0-8.0); MONOCYTE # 0.4 TH/MM3 (0-0.9); NEUT % 44.7 % (16.0-70.0); PLATELET COUNT 135 TH/MM3 (150-450); RED BLOOD COUNT 4.26 MIL/MM3 (4.00-5.30); RED CELL DISTRIBUTION WIDTH 14.9 % (11.6-17.2); WHITE BLOOD COUNT 5.6 TH/MM3 (4.0-11.0)
[2017-03-31 18:36] LABS: BACTERIA, URINE FEW /hpf; BILIRUBIN, URINE NEG (NEG); BLOOD, URINE NEG (NEG); GLUCOSE,URINE NEG (NEG); KETONE, URINE NEG (NEG); MUCUS URINE FEW /lpf (OCC); NITRITE,URINE NEG (NEG); PH, URINE 6.5 (5.0-8.5); SQUAMOUS EPITHELIAL CELL URINE 14 /hpf (0-5); URINE COLOR YELLOW (YELLW/STRAW); URINE LEUKOCYTE ESTERASE SMALL (NEG)
[2017-03-31 18:39] LABS: INTERNATIONAL NORMALIZED RATIO 1.1 RATIO; PROTHROMBIN TIME - PATIENT 11.3 SEC (9.8-11.6)
[2017-03-31 18:42] LABS: ALT (GPT) 26 U/L (10-53)
[2017-03-31 18:46] LABS: ALBUMIN 3.4 GM/DL (3.4-5.0); AST (GOT) 66 U/L (15-37); BICARBONATE 29.9 MEQ/L (21.0-32.0); BLOOD UREA NITROGEN 8 MG/DL (7-18); CALCIUM 8.6 MG/DL (8.5-10.1); CHLORIDE 104 MEQ/L (98-107); CREATININE 0.65 MG/DL (0.50-1.00); GLOMERULAR FILTRATION RATE 92 ML/MIN (>89); GLUCOSE,RANDOM 94 MG/DL (74-106); SODIUM (NA) 140 MEQ/L (136-145)
[2017-03-31 18:54] LABS: ALKALINE PHOSPHATASE 129 U/L (45-117); TOTAL BILIRUBIN ADULT 0.7 MG/DL (0.2-1.0); TOTAL PROTEIN 8.4 GM/DL (6.4-8.2)
--- NOTE | 2017-03-31 19:52 | PD ---
HPI Chief Complaint: Medical Clearance Time Seen by Provider: 17:13 Travel History International Travel<30 days: No Contact w/Intl Traveler<30days: No Traveled to known affect area: No History of Present Illness HPI Pt is a 61-year-old female presenting to the emergency department stating she feels disoriented, she reports her speech is off, she has a rash reportedly over her whole body. He symptoms started 2 weeks ago, she was told by her primary doctor to come to the emergency department to be evaluated. Patient states her symptoms started after a blood vessel in her leg burst. She has no other complaints at this time. Onset of symptoms was gradual, and no alleviating factors. PFSH Past Medical History Arthritis: Yes (R.A.) Atrial Fibrillation: Yes Autoimmune Disease: Yes (R.A.) Blood Disorders: No Anxiety: Yes Depression: No Heart Rhythm Problems: Yes Cancer: No Cardiac Catheterization: No Cardiovascular Problems: Yes (ablation, pulm embolism) High Cholesterol: No Chest Pain: Yes Congestive Heart Failure: No COPD: Yes Cerebrovascular Accident: No Diabetes: No Diminished Hearing: Yes (L EAR DEAF) Endocrine: No Gastrointestinal Disorders: Yes GERD: No Glaucoma: No Genitourinary: Yes Headaches: Yes Hepatitis: No Hiatal Hernia: No Hypertension: Yes Immune Disorder: No Implanted Vascular Access Dvce: No Kidney Stones: No Musculoskeletal: Yes (OSTEOMYLITIS, BILATERAL CARPAL TUNNEL SURGERY) Neurologic: Yes Psychiatric: No Reproductive: Yes Respiratory: Yes (PE) Migraines: No Pneumonia: Yes Radiation Therapy: No Seizures: No Sleep Apnea: No Thyroid Disease: No Ulcer: No PNEUMOCCOCAL Vaccine (Year): 2 Menopausal: Yes : 2 Para: 2 Past Surgical History Abdominal Surgery: Yes AICD: No Appendectomy: Yes Arteriovenous Shunt: No Cardiac Surgery: Yes (ablation) Section: Yes (X 2) Cholecystectomy: Yes Coronary Artery Bypass Graft: No Ear Surgery: Yes (MASTOID TUMOR REMOVED) Endocrine Surgery: No Eye Surgery: No Genitourinary Surgery: Yes (BLADDER SLING) Gynecologic Surgery: Yes Hysterectomy: Yes Insulin Pump: No Joint Replacement: No Oral Surgery: Yes (UPPER TEETH REMOVED FOR DENTURES) Pacemaker: No Thoracic Surgery: No Other Surgery: Yes (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) Social History Alcohol Use: No Tobacco Use: Yes (1ppd) Substance Use: No Allergies-Medications (Allergen,Severity, Reaction): Coded Allergies: cortisone (Unverified Allergy, Intermediate, Hypertension, 11/04/16) CAUSES RASH AND HIGH BLOOD PRESSURE Reported Meds & Prescriptions Reported Meds & Active Scripts Active Reported Methotrexate 25 mg/ml Vial (Methotrexate Sodium/Pf) 25 Mg/1 Ml Vial 0.6 Ml SQ WEEKLY Orencia Inj (Abatacept Inj) 125 Mg/Ml Syr 125 Mg SQ Q7D Furosemide 20 Mg Tab 20 Mg PO DAILY Gabapentin 300 Mg Cap 300 Mg PO TID Duloxetine DR (Duloxetine HCl) 60 Mg Capdr 60 Mg PO BID Alprazolam 1 Mg Tab 1 Mg PO TID PRN Amitriptyline (Amitriptyline HCl) 25 Mg Tab 25 Mg PO HS Advair Diskus Inh (Fluticasone-Salmeterol Inh) 250-50 Mcg/Blist Aer 1 Puff INH BID Rinse mouth after use. Epinephrine Inj (Epinephrine) 0.3 Mg/0.3 Ml Pfpen 0.3 Mg IM ONCE PRN Review of Systems Except as stated in HPI: all other systems reviewed are Neg Physical Exam Narrative GENERAL: Well-developed, well-nourished, well-appearing female. Presenting in no acute distress. SKIN: Warm and dry. HEAD: Normocephalic. EYES: No scleral icterus. No injection or drainage. CARDIOVASCULAR: Regular rate RESPIRATORY: No accessory muscle use. NEUROLOGICAL: Awake and alert. Normal speech. Data Data Last Documented VS Vital Signs Date Time Temp Pulse Resp B/P (MAP) Pulse Ox O2 Delivery O2 Flow Rate FiO2 03/31/17 16:57 98.4 71 16 166/67 (100) 97 Orders Orders Complete Blood Count With Diff (03/31/17 17:26) Comprehensive Metabolic Panel (03/31/17 17:26) Creatine Kinase (Cpk) (03/31/17 17:26) Prothrombin Time / Inr (Pt) (03/31/17 17:26) Act Partial Throm Time (Ptt) (03/31/17 17:26) Thyroid Stimulating Hormone (03/31/17 17:26) Ct Brain W/O Iv Contrast(Rout) (03/31/17 17:26) Urinalysis - C+S If Indicated (03/31/17 17:26) Labs Laboratory Tests Test 03/31/17 18:00 03/31/17 18:10 White Blood Count 5.6 TH/MM3 Red Blood Count 4.26 MIL/MM3 Hemoglobin 13.3 GM/DL Hematocrit 38.3 % Mean Corpuscular Volume 89.9 FL Mean Corpuscular Hemoglobin 31.3 PG Mean Corpuscular Hemoglobin Concent 34.8 % Red Cell Distribution Width 14.9 % Platelet Count 135 TH/MM3 Mean Platelet Volume 8.5 FL Neutrophils (%) (Auto) 44.7 % Lymphocytes (%) (Auto) 42.9 % Monocytes (%) (Auto) 7.8 % Eosinophils (%) (Auto) 3.9 % Basophils (%) (Auto) 0.7 % Neutrophils # (Auto) 2.5 TH/MM3 Lymphocytes # (Auto) 2.4 TH/MM3 Monocytes # (Auto) 0.4 TH/MM3 Eosinophils # (Auto) 0.2 TH/MM3 Basophils # (Auto) 0.0 TH/MM3 CBC Comment DIFF FINAL Differential Comment Prothrombin Time 11.3 SEC Prothromb Time International Ratio 1.1 RATIO Activated Partial Thromboplast Time 29.4 SEC Blood Urea Nitrogen 8 MG/DL Creatinine 0.65 MG/DL Random Glucose 94 MG/DL Total Protein 8.4 GM/DL Albumin 3.4 GM/DL Calcium Level 8.6 MG/DL Alkaline Phosphatase 129 U/L Aspartate Amino Transf (AST/SGOT) 66 U/L Alanine Aminotransferase (ALT/SGPT) 26 U/L Total Bilirubin 0.7 MG/DL Sodium Level 140 MEQ/L Potassium Level 3.6 MEQ/L Chloride Level 104 MEQ/L Carbon Dioxide Level 29.9 MEQ/L Anion Gap 6 MEQ/L Estimat Glomerular Filtration Rate 92 ML/MIN Total Creatine Kinase 83 U/L Thyroid Stimulating Hormone 3rd Gen 3.470 uIU/ML Urine Color YELLOW Urine Turbidity HAZY Urine pH 6.5 Urine Specific Lula 1.014 Urine Protein NEG mg/dL Urine Glucose (UA) NEG mg/dL Urine Ketones NEG mg/dL Urine Occult Blood NEG Urine Nitrite NEG Urine Bilirubin NEG Urine Urobilinogen 4.0 MG/DL Urine Leukocyte Esterase SMALL Urine RBC 4 /hpf Urine WBC 3 /hpf Urine Squamous Epithelial Cells 14 /hpf Urine Bacteria FEW /hpf Urine Mucus FEW /lpf Microscopic Urinalysis Comment CULT NOT INDICATED MDM Medical Decision Making Medical Screen Exam Complete: Yes Emergency Medical Condition: Yes Interpretation(s) Vital Signs Date Time Temp Pulse Resp B/P (MAP) Pulse Ox O2 Delivery O2 Flow Rate FiO2 03/31/17 16:57 98.4 71 16 166/67 (100) 97 Differential Diagnosis Mood disorder versus TIA versus CVA versus metabolic abnormality versus other Narrative Course Patient is a 61-year-old well-appearing female presenting to the emergency department with several medical complaints. Patient's vital signs are stable. Protocols were initiated in triage. Patient presented to the desk in triage stating that she was going to leave. She stated that she needed to have a ride home and her son was coming to get her. She was encouraged to stay and be evaluated. Patient further declined Patient Gwen Anna has decided to leave the hospital against medical advice. This patient has the capacity to refuse care and understands the risks of leaving, including permanent disability and/or , and has had an opportunity to ask questions about her condition. The patient has been informed that she may return for care at any time, and follow up has been arranged/ advised. Diagnosis Primary Impression: Left against medical advice Ketty Rey Mar 31, 2017 19:52
== END 2017-03-31 19:50 | disposition left against medical advice (07) ==
LOC: NED 16:54
DX: R21 Rash and other nonspecific skin eruption (principal); R41.0 Disorientation, unspecified; I48.91 Unspecified atrial fibrillation; F17.200 Nicotine dependence, unspecified, uncomplicated
CPT/HCPCS: 70450; 80053; 81001; 82550; 84443; 85025; 85610; 85730; 99284

== ENCOUNTER 2017-05-19 17:01 | Emergency (ER) | payer MEDICARE, OTHER ==
[~2017-05-19] VITALS: Ht 165.1 cm; Wt 81.8 kg
[2017-05-19 17:06] VITALS: BP 150/75; PULSE 82; RESP 20; TEMP 98.6; O2SAT 97
--- NOTE | 2017-05-19 17:40 | RADRPT ---
EXAM DATE/TIME: 05/19/2017 17:32 [facility] COMPARISON: CT BRAIN W/O CONTRAST, March 31, 2017, 17:44. INDICATIONS : Head pain due to dizziness. RADIATION DOSE: 37.23 CTDIvol (mGy) MEDICAL HISTORY : Cardiovascular disease. Hypertension. Chronic obstructive pulmonary disease.RA SURGICAL HISTORY : Hysterectomy. ENCOUNTER: Initial ACUITY: 1 day PAIN SCALE: 7/10 LOCATION: Bilateral cranial TECHNIQUE: Multiple contiguous axial images were obtained of the head. Using automated exposure control and adj ustment of the mA and/or kV according to patient size, radiation dose was kept as low as reasonably a chievable to obtain optimal diagnostic quality images. DICOM format image data is available electro nically for review and comparison. FINDINGS: CEREBRUM: The ventricles are normal for age. No evidence of midline shift, mass lesion, hemorrhage or acute in farction. No extra-axial fluid collections are seen. POSTERIOR FOSSA: The cerebellum and brainstem are intact. The 4th ventricle is midline. The cerebellopontine angle i s unremarkable. EXTRACRANIAL: The visualized portion of the orbits is intact. SKULL: The calvaria is intact. No evidence of skull fracture. CONCLUSION: 1. No evidence of acute intracranial pathology. No masses are identified. Bird Cohen MD on May 19, 2017 at 17:38 Board Certified Radiologist. This report was verified electronically.
[2017-05-19] MEDS ORDERED: UMEC1AER INH (17:57)
[2017-05-19] MEDS ORDERED: PLAV75TA29 PO (17:57)
[2017-05-19] MEDS ORDERED: LAMO25 PO (17:57)
[2017-05-19] MEDS ORDERED: ACETAMINOPHEN/HYDROcodone 325 MG/5 MG TAB PO ONE (18:30)
--- NOTE | 2017-05-19 18:38 | PD ---
HPI Chief Complaint: Edema Time Seen by Provider: 17:57 Travel History International Travel<30 days: No Contact w/Intl Traveler<30days: No Traveled to known affect area: No History of Present Illness HPI 61-year-old female complains of left leg pain and swelling. Patient states that she has history of DVT in the left leg. Patient states that she has history of peripheral vascular disease status post stent placement in the left leg 5 weeks ago. Patient states that she has increasing pain and swelling the left leg for the past 2 weeks. Patient denies any headache. Patient denies any chest pain or shortness of breath. Patient denies abdominal pain. Patient denies any focal weakness or numbness of the extremity. Patient states that she has unsteady gait for the past 2 days and having recurrent seizure recently. Patient has history of seizure in the past. Patients on Lamictal. Patient denies any alcohol or drug abuse. Patient denies any headache. Patient denies any chest pain shortness of breath. Patient denies abdominal pain. Patient states that left lower extremity pain and cramping pain and sharp pain localized to left lower extremity. Patient denies any pain radiation. Patient denies any recent injury to left lower extremity. Patient was seen in emergency room on November 03, 2016. Patient had Doppler study at that time which was negative for DVT. Patient also has CT pulmonary angiogram which was negative for PE. Patient has been seen a physician in [place] for her DVT and peripheral vascular disease problem. Patient is on Plavix daily. Patient has history of rheumatoid arthritis, anxiety, hearing impaired left ear, atrial fibrillation, COPD, hypertension, PE in the past. Patient states that she has been taking Demerol for left leg pain. PFSH Past Medical History Arthritis: Yes (R.A.) Atrial Fibrillation: Yes Autoimmune Disease: Yes (R.A.) Blood Disorders: No Anxiety: Yes Depression: No Heart Rhythm Problems: Yes Cancer: No Cardiac Catheterization: No Cardiovascular Problems: Yes (ablation, pulm embolism) High Cholesterol: No Chest Pain: Yes Congestive Heart Failure: No COPD: Yes Cerebrovascular Accident: No Diabetes: No Diminished Hearing: Yes (L EAR DEAF) Endocrine: No Gastrointestinal Disorders: Yes GERD: No Glaucoma: No Genitourinary: Yes Headaches: Yes Hepatitis: No Hiatal Hernia: No Hypertension: Yes Immune Disorder: No Implanted Vascular Access Dvce: No Kidney Stones: No Medical other: Yes (ARTHRITIS- PHLEBITIS LEFT ARM-OSTEOMYLITIS) Musculoskeletal: Yes (OSTEOMYLITIS, BILATERAL CARPAL TUNNEL SURGERY) Neurologic: Yes Psychiatric: No Reproductive: Yes Respiratory: Yes (PE) Migraines: No Pneumonia: Yes Radiation Therapy: No Seizures: Yes Sleep Apnea: No Thyroid Disease: No Ulcer: No Influenza Vaccination: No PNEUMOCCOCAL Vaccine (Year): 2 Menopausal: Yes : 2 Para: 2 Past Surgical History Abdominal Surgery: Yes AICD: No Appendectomy: Yes Arteriovenous Shunt: No Cardiac Surgery: Yes (ablation) Section: Yes (X 2) Cholecystectomy: Yes Coronary Artery Bypass Graft: No Ear Surgery: Yes (MASTOID TUMOR REMOVED) Endocrine Surgery: No Eye Surgery: No Genitourinary Surgery: Yes (BLADDER SLING) Gynecologic Surgery: Yes Hysterectomy: Yes Insulin Pump: No Joint Replacement: No Oral Surgery: Yes (UPPER TEETH REMOVED FOR DENTURES) Pacemaker: No Thoracic Surgery: No Other Surgery: Yes (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) Social History Alcohol Use: No Tobacco Use: Yes (1ppd) Substance Use: No Allergies-Medications (Allergen,Severity, Reaction): Coded Allergies: cortisone (Unverified Allergy, Intermediate, Hypertension, 05/19/17) CAUSES RASH AND HIGH BLOOD PRESSURE Reported Meds & Prescriptions Reported Meds & Active Scripts Active Reported Anoro Ellipta Inh (Umeclidinium/Vilanterol) 62.5-25 Mcg/Act Aero 1 Puff INH DAILY Lamictal (Lamotrigine) 25 Mg Tab 75 Mg PO BID Plavix (Clopidogrel Bisulfate) 75 Mg Tab 75 Mg PO DAILY Methotrexate 25 mg/ml Vial (Methotrexate Sodium/Pf) 25 Mg/1 Ml Vial 0.6 Ml SQ WEEKLY Orencia Inj (Abatacept Inj) 125 Mg/Ml Syr 125 Mg SQ Q7D Furosemide 20 Mg Tab 20 Mg PO DAILY Gabapentin 300 Mg Cap 300 Mg PO TID Duloxetine DR (Duloxetine HCl) 60 Mg Capdr 60 Mg PO BID Alprazolam 1 Mg Tab 1 Mg PO TID PRN Amitriptyline (Amitriptyline HCl) 25 Mg Tab 25 Mg PO HS Advair Diskus Inh (Fluticasone-Salmeterol Inh) 250-50 Mcg/Blist Aer 1 Puff INH BID Rinse mouth after use. Epinephrine Inj (Epinephrine) 0.3 Mg/0.3 Ml Pfpen 0.3 Mg IM ONCE PRN Review of Systems General / Constitutional: No: Fever Eyes: No: Visual changes HENT: No: Headaches Cardiovascular: No: Chest Pain or Discomfort Respiratory: No: Shortness of Breath Gastrointestinal: No: Abdominal Pain Genitourinary: No: Dysuria Musculoskeletal: Positive: Edema, Pain Skin: No Rash Neurologic: No: Weakness Psychiatric: No: Depression Endocrine: No: Polydipsia Hematologic/Lymphatic: No: Easy Bruising Physical Exam Narrative GENERAL: Well-nourished, well-developed patient. SKIN: Focused skin assessment warm/dry. HEAD: Normocephalic. EYES: No scleral icterus. No injection or drainage. NECK: Supple, trachea midline. No JVD or lymphadenopathy. CARDIOVASCULAR: Regular rate and rhythm without murmurs, gallops, or rubs. RESPIRATORY: Breath sounds equal bilaterally. No accessory muscle use. GASTROINTESTINAL: Abdomen soft, non-tender, nondistended. MUSCULOSKELETAL: Patient has moderate diffuse tenderness of the left leg with mild swelling of the left leg more than the right leg. No redness no heat noted. Good capillary refill. BACK: Nontender without obvious deformity. No CVA tenderness. Neurologic exam normal. Data Data Last Documented VS Vital Signs Date Time Temp Pulse Resp B/P (MAP) Pulse Ox O2 Delivery O2 Flow Rate FiO2 05/19/17 17:50 19 Room Air 05/19/17 17:06 98.6 82 150/75 (100) 97 Orders Orders Complete Blood Count With Diff (05/19/17 17:09) Comprehensive Metabolic Panel (05/19/17 17:09) Coag Profile (05/19/17 17:09) Electrocardiogram (05/19/17 17:09) Chest, Pa & Lat (05/19/17 17:09) Ct Brain W/O Iv Contrast(Rout) (05/19/17 17:09) Acetamin-Hydrocod 325-5 Mg (Howard 5-325 (05/19/17 18:30) Us Leg Venous Doppler (05/19/17 18:21) MDM Medical Decision Making Medical Screen Exam Complete: Yes Emergency Medical Condition: Yes Differential Diagnosis Differential diagnosis including acute on chronic pain, DVT, cellulitis, dependent edema. Narrative Course 61-year-old female with increasing pain and swelling left leg. History of peripheral vascular disease and DVT in the left leg. Dennys Song MD May 19, 2017 18:38
--- NOTE | 2017-05-19 18:52 | RADRPT ---
EXAM DATE/TIME: 05/19/2017 17:59 [facility] COMPARISON: CHEST PA & LAT, August 29, 2016, 20:25. INDICATIONS : Palpitations. MEDICAL HISTORY : Hypertension. Chronic obstructive pulmonary disease. Arthritis. A-fib. SURGICAL HISTORY : Appendectomy. section. Hysterectomy. Mastoid tumor removal. ENCOUNTER: Initial ACUITY: 1 day PAIN SCORE: 0/10 LOCATION: Bilateral chest FINDINGS: The cardiac silhouette is enlarged in transverse diameter. There are chronic fibrotic changes bilater ally. There has been no significant change when compared to the prior exam. There is no evidence of pneumonia. CONCLUSION: 1. Chronic fibrotic changes bilaterally unchanged from the prior study. No acute pulmonary disease. Bird Cohen MD on May 19, 2017 at 18:50 Board Certified Radiologist. This report was verified electronically.
[2017-05-19 19:14] LABS: INTERNATIONAL NORMALIZED RATIO 1.1 RATIO; PROTHROMBIN TIME - PATIENT 11.6 SEC (9.8-11.6)
--- NOTE | 2017-05-19 19:18 | RADRPT ---
EXAM DATE/TIME: 05/19/2017 18:52 [facility] COMPARISON: US LEG LEFT VENOUS DOPPLER, November 03, 2016, 15:24. INDICATIONS : Left leg swelling. MEDICAL HISTORY : Chronic obstructive pulmonary disease. Hypertension. Pulmonary embolism. Atrial fibrillation. Arthrit is. Anxiety. Chemotherapy. Phlebitis. Left arm osteomylitis. SURGICAL HISTORY : Cholecystectomy. Appendectomy. Hysterectomy. Cardiac ablation. section. Bilateral knee surge ry. Carpal tunnel surgery. Left mastoid tumor removal. ENCOUNTER: Subsequent ACUITY: 1 day PAIN SCORE: 9/10 LOCATION: Left leg. TECHNIQUE: Venous ultrasound of the leg was performed from the inguinal ligament to the proximal calf. Real-peggy e, color Doppler and spectral tracing, compression and augmentation techniques were used. FINDINGS: There is normal compressibility of the deep venous system from the inguinal region to the proximal ca lf. No echogenic clot is seen in the lumen of the common femoral, femoral, popliteal, and posterior tibial veins. There is a normal response of the venous system to proximal and distal augmentation an d respiration. CONCLUSION: 1. No evidence of deep venous thrombosis. Bird Cohen MD on May 19, 2017 at 19:17 Board Certified Radiologist. This report was verified electronically.
[2017-05-19 19:19] LABS: BASOPHIL % 0.3 % (0.0-2.0); EOSINOPHIL # 0.1 TH/MM3 (0-0.4); EOSINOPHIL % 1.4 % (0.0-4.0); HEMATOCRIT 37.2 % (35.0-46.0); HEMOGLOBIN 12.9 GM/DL (11.6-15.3); LYMPH % 32.6 % (9.0-44.0); LYMPHOCYTE # 2.8 TH/MM3 (1.0-4.8); MEAN CELL VOLUME 90.4 FL (80.0-100.0); MEAN CORPUSCULAR HEMOGLOBIN 31.3 PG (27.0-34.0); MEAN CORPUSCULAR HGB CONC 34.6 % (32.0-36.0); MEAN PLATELET VOLUME 8.8 FL (7.0-11.0); MONO % 7.6 % (0.0-8.0); MONOCYTE # 0.7 TH/MM3 (0-0.9); NEUT % 58.1 % (16.0-70.0); PLATELET COUNT 135 TH/MM3 (150-450); RED BLOOD COUNT 4.11 MIL/MM3 (4.00-5.30); RED CELL DISTRIBUTION WIDTH 14.8 % (11.6-17.2); WHITE BLOOD COUNT 8.6 TH/MM3 (4.0-11.0)
[2017-05-19 19:21] LABS: ALT (GPT) 20 U/L (10-53)
[2017-05-19 19:23] VITALS: BP 153/79; PULSE 72; RESP 20; O2SAT 98
[2017-05-19 19:23] LABS: ALKALINE PHOSPHATASE 112 U/L (45-117); TOTAL BILIRUBIN ADULT 0.8 MG/DL (0.2-1.0)
[2017-05-19 19:25] LABS: ALBUMIN 3.4 GM/DL (3.4-5.0); AST (GOT) 46 U/L (15-37); BICARBONATE 31.2 MEQ/L (21.0-32.0); BLOOD UREA NITROGEN 10 MG/DL (7-18); CALCIUM 8.6 MG/DL (8.5-10.1); CHLORIDE 101 MEQ/L (98-107); CREATININE 0.67 MG/DL (0.50-1.00); GLOMERULAR FILTRATION RATE 89 ML/MIN (>89); GLUCOSE,RANDOM 90 MG/DL (74-106); SODIUM (NA) 136 MEQ/L (136-145)
--- NOTE | 2017-05-19 20:19 | PD ---
Data Data Last Documented VS Vital Signs Date Time Temp Pulse Resp B/P (MAP) Pulse Ox O2 Delivery O2 Flow Rate FiO2 05/19/17 19:23 72 20 153/79 (103) 98 Room Air 05/19/17 17:06 98.6 Orders Orders Complete Blood Count With Diff (05/19/17 17:09) Comprehensive Metabolic Panel (05/19/17 17:09) Coag Profile (05/19/17 17:09) Electrocardiogram (05/19/17 17:09) Chest, Pa & Lat (05/19/17 17:09) Ct Brain W/O Iv Contrast(Rout) (05/19/17 17:09) Acetamin-Hydrocod 325-5 Mg ([place] 5-325 (05/19/17 18:30) Us Leg Venous Doppler (05/19/17 18:21) Labs Laboratory Tests Test 05/19/17 18:20 White Blood Count 8.6 TH/MM3 Red Blood Count 4.11 MIL/MM3 Hemoglobin 12.9 GM/DL Hematocrit 37.2 % Mean Corpuscular Volume 90.4 FL Mean Corpuscular Hemoglobin 31.3 PG Mean Corpuscular Hemoglobin Concent 34.6 % Red Cell Distribution Width 14.8 % Platelet Count 135 TH/MM3 Mean Platelet Volume 8.8 FL Neutrophils (%) (Auto) 58.1 % Lymphocytes (%) (Auto) 32.6 % Monocytes (%) (Auto) 7.6 % Eosinophils (%) (Auto) 1.4 % Basophils (%) (Auto) 0.3 % Neutrophils # (Auto) 5.0 TH/MM3 Lymphocytes # (Auto) 2.8 TH/MM3 Monocytes # (Auto) 0.7 TH/MM3 Eosinophils # (Auto) 0.1 TH/MM3 Basophils # (Auto) 0.0 TH/MM3 CBC Comment AUTO DIFF Differential Comment AUTO DIFF CONFIRMED Platelet Estimate LOW Platelet Morphology Comment NORMAL Prothrombin Time 11.6 SEC Prothromb Time International Ratio 1.1 RATIO Activated Partial Thromboplast Time 21.1 SEC Blood Urea Nitrogen 10 MG/DL Creatinine 0.67 MG/DL Random Glucose 90 MG/DL Total Protein 8.0 GM/DL Albumin 3.4 GM/DL Calcium Level 8.6 MG/DL Alkaline Phosphatase 112 U/L Aspartate Amino Transf (AST/SGOT) 46 U/L Alanine Aminotransferase (ALT/SGPT) 20 U/L Total Bilirubin 0.8 MG/DL Sodium Level 136 MEQ/L Potassium Level 3.9 MEQ/L Chloride Level 101 MEQ/L Carbon Dioxide Level 31.2 MEQ/L Anion Gap 4 MEQ/L Estimat Glomerular Filtration Rate 89 ML/MIN [facility] Medical Record Reviewed: Yes Supervised Visit with HEIDI: No Narrative Course During the course of the patient's emergency department visit, the patient's history, examination, and differential diagnosis were reviewed with the patient. The patient was placed on a phototypesetting equipment monitor with oximetry and frequent blood pressure monitoring. The patient had IV access obtained and blood work sent for analysis. The patient's case was checked out to me by Dr. Song. Please see his complete history and physical. The patient's case was checked out to me at the conclusion of his shift. The patient presented with swelling of her left lower extremity and a prior history of DVT. The patient's workup during his evaluation had been essentially unremarkable, however the ultrasound was pending to rule out DVT. The patient was initially provided hydrocodone for pain. The patient's laboratory studies were reviewed and remarkable for a white count of 8.6, hemoglobin 12.9, platelets 135 with a normal differential, CMP is remarkable for an anion gap of 4, AST 46, PT 11.6, PTT 21.1 Radiology studies were reviewed and remarkable for a chest x-ray that shows chronic fibrotic changes bilaterally unchanged from prior study, no acute cardiopulmonary disease. CT scan of the brain showed no evidence of acute intracranial pathology. Ultrasound of the left leg revealed no evidence of deep venous thrombosis. The patient has a history of chronic pain and is on pain medication at home. She is instructed to continue on her medication regimen as previously prescribed and follow-up with her physician regarding her exacerbation of pain. The patient is resting comfortably and feels better, is alert and in no distress. The patient's results and examination findings were discussed with the patient. The repeat examination is unremarkable and benign. The history, exam, diagnostic testing, and current condition do not suggest any significant pathology to warrant further testing, continued ED treatment, admission, or surgical evaluation at this point. The vital signs have been stable. The patient does not have uncontrollable pain, intractable vomiting, or other significant symptoms. The patient's condition is stable and appropriate for discharge. The patient will pursue further outpatient evaluation with a primary care physician or other designated or consulting physician as indicated in the discharge instructions. The patient expressed understanding and was agreeable with this plan. Diagnosis Primary Impression: Lower extremity pain, left Referrals: Primary Care Physician 2 days Vascular Surgeon 2 days Additional Instruction: Continue your prior pain management regimen as previously prescribed. Med/Other Pt SpecificInfo: No Change to Meds Disposition: 01 DISCHARGE HOME Condition: Stable Ingrid Mariano MD May 19, 2017 20:19
[2017-05-19 20:46] VITALS: BP 142/66; PULSE 66; RESP 20; O2SAT 100
--- NOTE | 2017-05-20 12:24 | EKG ---
Date Performed: 05/19/2017 Time Performed: 18:08:02 PTAGE: 61 years EKG: Sinus rhythm NONSPECIFIC T-WAVE ABNORMALITY BORDERLINE ECG PREVIOUS TRACING : 08/29/2016 19.57 Since the prior tracing, there has been no significant mariee DOCTOR: Bird Valle Interpretating Date/Time 05/20/2017 12:21:56
== END 2017-05-19 21:00 | disposition home or self-care (01) ==
LOC: NEPC 17:01
DX: M79.605 Pain in left leg (principal); I73.9 Peripheral vascular disease, unspecified; M06.9 Rheumatoid arthritis, unspecified; I48.91 Unspecified atrial fibrillation; J44.9 Chronic obstructive pulmonary disease, unspecified; I10 Essential (primary) hypertension; F17.200 Nicotine dependence, unspecified, uncomplicated; Z86.718 Personal history of other venous thrombosis and embolism; Z86.711 Personal history of pulmonary embolism
CPT/HCPCS: 70450; 71046; 80053; 85025; 85610; 85730; 93005; 93971